=== PATIENT | male | born 1995 | race Native Hawaiian/Other Pacific Islander ===

== ENCOUNTER 2020-05-14 13:53 | Emergency (ER) | payer MEDICAID, SELFPAY | END 2020-05-14 16:40 | disposition left against medical advice (07) | PROVIDERS: Emergency Provider Emergency Medicine | DX: L23.9 Allergic contact dermatitis, unspecified cause (principal) ==

== ENCOUNTER 2020-08-19 10:28 | Outpatient (REF) | payer MEDICAID, SELFPAY | END 2020-08-19 10:29 | disposition home or self-care (01) | LOC: HO.LAB 10:28 | PROVIDERS: Visit Provider Internal Medicine | DX: Z20.822 Contact with and (suspected) exposure to COVID-19 (principal) | CPT/HCPCS: 36415; C9803; U0003 ==

== ENCOUNTER 2020-12-31 13:00 | Emergency (ER) | payer OTHER, MEDICAID, SELFPAY ==
--- NOTE | ~2020-12-31 | XR_ITS ---
EXAMINATION: XR RIBS, RIGHT CLINICAL INFORMATION: Right posterior rib pain after a fall COMPARISON: 02/11/2017 TECHNIQUE: 3 views of the right ribs were obtained. AP chest. FINDINGS: Lungs are clear. No consolidation, pneumothorax, or pleural effusion. The cardiomediastinal silhouette and pulmonary vasculature are normal. Osseous structures are unremarkable. Ribs are intact. No fractures are identified. XR/XR ribs RT min 3V w CXR1V IMPRESSION: Unremarkable examination.
[2020-12-31 13:03] VITALS: BP 135/78; PULSE 85; RESP 16; TEMP 36.8; O2SAT 100; BMI 19.3
--- NOTE | 2020-12-31 13:27 | ED_ITS ---
HPI - Back Pain/Injury General Chief Complaint: Back Pain/Injury Stated Complaint: FALL BACK PAIN Time Seen by Provider: 12/31/20 13:14 Source: patient Mode of arrival: ambulatory Limitations: no limitations History of Present Illness HPI Narrative: 25 y/o male presents to the ER with right middle and upper back pain for the last 2 days after he accidentally slipped and fell down metal stairs at work. He did not hit his head or lose consciousness. He was able to slowly get up after he fell and he drove right home. He spent yesterday in bed because his back was hurting. Pain is worse with movement, palpation and taking deep breaths. He has some abrasions to his upper back where he fell. He took Advil for pain but no improvement. MD elicited complaint: back injury and fall Pertinent past history: recent trauma Onset (ago): day(s) (2) Timing: constant Similar Symptoms Previously: No Quality: sharp and aching Location: right upper back Radiation: none Exacerbating factors: movement, deep breaths and coughing/sneezing Relieving factors: immobilization Context: fall Treatments prior to arrival: NSAIDS Work related injury: Yes Related Data Previous Rx's Medication Instructions Recorded lidocaine [Lidoderm] 1 patch TOPICAL DAILY #15 ea 12/31/20 naproxen 500 mg PO BID PRN #20 tab 12/31/20 Allergies Allergy/AdvReac Type Severity Reaction Status Date / Time No Known Allergies Allergy Unverified 04/15/20 16:59 [No Known Allergies*] Review of Systems Review of Systems: Constitutional: No Fever, No Chills ENT/Mouth: No sore throat, No Rhinorrhea, No Swallowing Difficulty s Cardiovascular: No Chest Pain, No SOB, No Orthopnea, No Edema Respiratory: No Cough, No Sputum, No Wheezing, No dyspnea Gastrointestinal: No Nausea, No Vomiting, No Diarrhea, No abdominal Pain Genitourinary: No Dysuria, No Urinary Frequency, No Hematuria Musculoskeletal: + joint pain, + Myalgias Skin: No Skin Lesions, No rash Neuro: No Weakness, No Numbness, No Dizziness, No Headache Heme/Lymph: No Bruising, No Lymphadenopathy Endocrine: No Polyuria, No Polydipsia [facility] Past Medical History Medical History (Updated 12/31/20 @ 15:02 by IVETTE Mcclendon) No known health problems Social History Social History Advance Directives: No Advance Directives Information Provided: Yes Physical Exam Vital Signs: Vital Signs: Last Vital Signs Temp 98.3 F 12/31/20 13:03 Pulse 85 12/31/20 13:03 Resp 16 12/31/20 13:03 BP 135/78 12/31/20 13:03 Pulse Ox 100 12/31/20 13:03 Body Mass Index 19.3 Appearance: Alert. Oriented X3. No acute distress. HEENT: normal inspection CVS: Normal heart rate and rhythm. Pulses normal. Respiratory: No respiratory distress. CTAB. Right upper back with superficial abrasions in a circular area below right scapula, tender. small ecchymosis Skin: Skin warm and dry. Normal skin color. Normal skin turgor. No rashes. Extremities: atraumatic, no edema, no ecchymosis Neuro: Oriented X 3. No motor deficit. No sensory deficit. Course Course Course Narrative: 25 y/o male presenting with upper right back pain/rib pain s/p fall onto metal stairs at work 2 days ago. Pain persists, worse with movement and deep breaths. Will get Rib XR to assess for fractures and PTX. Lung sounds are clear. Reevaluation(s) Reevaluation #1: CXR negative. Will treat for contusion with NSAID and lidoderm patches. Critical Care Time Critical Care Time Critical Care Time: No Discharge Plan Discharge Clinical Impression: Contusion of rib on right side Qualifiers: Encounter type: initial encounter Qualified Code(s): S20.211A - Contusion of right front wall of thorax, initial encounter Patient Disposition: Home, Self-Care Instructions: Rib Contusion (ED) Additional Instructions: Your x-ray today was normal. Rest. Use ice several times per day to the area. Limit bending, lifting or twisting. Take medications as prescribed to help with pain and discomfort. Follow up with your Primary Care Doctor next week. Prescriptions: New lidocaine [Lidoderm] 5 % adhesive patch,medicated 1 patch topical DAILY Qty: 15 RF: 0 naproxen 500 mg tablet 500 mg PO BID PRN (Reason: pain) Qty: 20 RF: 0 Stand Alone Forms: Work/School Release
[2020-12-31] MEDS: Lidocaine 4 % Patch ADH..PATCH 1 PATCH TRANSDERMA (15:28)
[2020-12-31] MEDS: Ketorolac Tromethamine 30 MG/ML VIAL IM (15:29)
== END 2020-12-31 15:57 | disposition home or self-care (01) ==
PROVIDERS: Emergency Provider Emergency Medicine Emergency Medical Services
DX: S20.211A Contusion of right front wall of thorax, initial encounter (principal); W10.8XXA Fall (on) (from) other stairs and steps, initial encounter; Y93.89 Activity, other specified; Y92.59 Other trade areas as the place of occurrence of the external cause; Y99.0 Civilian activity done for income or pay
CPT/HCPCS: 71101; 96372; 99283; 99284; J1885

== ENCOUNTER 2021-06-07 11:03 | Outpatient (REF) | payer MEDICAID, SELFPAY ==
[2021-06-07 12:08] LABS: Hemoglobin 15.4 g/dl (14.0-18.0); Mean Corpuscular HGB Conc 32.8 g/dl (31.0-36.0); Mean Corpuscular Hemoglobin 29.4 pg (27.0-33.0); Mean Corpuscular Volume 89.7 fL (80.0-98.0); Mean Platelet Volume 10.7 fL (9.4-12.4); Platelet Count 196 X10*3/uL (160-400); Red Blood Count 5.24 X10*6/uL (4.60-5.80); Red Cell Distribution Width 11.8 % (11.0-16.0); White Blood Count 6.1 X10*3/uL (4.8-10.8)
[2021-06-07 12:37] LABS: Alanine Aminotransferase 6 U/L (0-40); Albumin Level 4.4 g/dL (3.5-5.0); Alkaline Phosphatase 79 U/L (39-117); Anion Gap 14 (12-20); Aspartate Amino Transferase 19 U/L (5-37); Bilirubin Total 0.5 mg/dL (0.0-1.0); Blood Urea Nitrogen 9 mg/dL (9-16); Calcium 9.5 mg/dL (8.4-10.2); Carbon Dioxide 24 mmol/L (22-29); Chloride 106 mmol/L (96-108); Estimated Glomerular Filt Rate > 60; Glucose Random 92 mg/dL (60-115); Potassium 3.8 mmol/L (3.3-5.1); Sodium 140 mmol/L (135-145); Total Protein 7.4 g/dL (6.5-8.0)
[2021-06-07 12:57] LABS: Estimated Average Glucose 100 mg/dL; Hemoglobin A1c % 5.1 %
[2021-06-07 13:53] LABS: Appearance Urine CLEAR; Color Urine STRAW; Glucose Urine UA NEG (NEG); Leukocyte Esterase Urine NEG (NEG); Nitrite Urine NEG (NEG); PH 6.5 (5.0-8.0); Specific Gravity - Urine <= 1.005 (1.005-1.025); Urine Blood NEG (NEG); Urine Ketones NEG (NEG); Urine Protein NEG (NEG-TRACE)
[2021-06-07 14:11] LABS: RBC Urine 0 /HPF (0); Squamous Epithelial Cell Urine TRACE /LPF; WBC Urine 0-2 /HPF (0-4)
[2021-06-07 14:14] LABS: Creatinine Urine 54.55 mg/dL; Microalbumin Urine < 5.0 mg/L
== END 2021-06-07 11:04 | disposition home or self-care (01) ==
LOC: HO.LAB 11:03
PROVIDERS: Absent Provider Registered Nurse; PCP Registered Nurse; Visit Provider Internal Medicine Geriatric Medicine
DX: Q87.2 Congenital malformation syndromes predominantly involving limbs (principal)
CPT/HCPCS: 36415; 80053; 81001; 82043; 83036; 84443; 85027

== ENCOUNTER 2023-02-26 05:24 | Emergency (ER) | payer MEDICAID, SELFPAY ==
[2023-02-26 05:40] VITALS: BP 148/87; PULSE 78; RESP 18; TEMP 36.9; O2SAT 100; BMI 18.3
--- NOTE | 2023-02-26 08:06 | ED.MALEGU ---
HPI - Male Genitourinary General Chief complaint: Urogenital-Male Stated complaint: uro-gen male, prefers male doc/nurse Time Seen by Provider: 02/26/23 07:00 History of Present Illness HPI Narrative: Patient presents with penile lesions. Patient noted them over the past few days. They are not painful or pruritic. He has never noted before. Patient has a fiancee and is monogamous. However, he denies any sexual activity within the last year. He denies any penile discharge. He denies history of STD. Symptoms are [id number]. There is no clear relieving or exacerbating features. Patient is uncircumcised. Related Data Previous Rx's Medication Instructions Recorded lidocaine 5 % topical patch 1 patch topical DAILY #15 ea 12/31/20 (Lidoderm) naproxen 500 mg tablet 500 mg PO BID PRN pain #20 tabs 12/31/20 ketoconazole 2 % topical cream 1 appl topical BID #30 grams 02/26/23 Allergies Allergy/AdvReac Type Severity Reaction Status Date / Time No Known Allergies Allergy Verified 02/26/23 05:40 [No Known Allergies*] Review of Systems Review of Systems: CONSTITUTIONAL: Denies weight loss, fever and chills. HEENT: Denies changes in vision and hearing. RESPIRATORY: Denies SOB and cough. CV: Denies palpitations no CP. GI: Denies abdominal pain, nausea, vomiting and diarrhea. : Denies dysuria and urinary frequency. MSK: Denies myalgia and joint pain. SKIN: Denies rash and pruritus. NEUROLOGICAL: Denies headache and syncope. PSYCHIATRIC: Denies recent changes in mood. Denies anxiety and depression. All other ROS are negative unless in HPI PMFSH Past Medical History Medical History No known health problems Social History Social History Advance Directives: No Advance Directives Information Provided: No Physical Exam Vital Signs: Vital Signs: Last Vital Signs Temp 98.4 F 02/26/23 05:40 Pulse 78 02/26/23 05:40 Resp 18 02/26/23 05:40 BP 148/87 H 02/26/23 05:40 Pulse Ox 100 02/26/23 05:40 O2 Del Method Room Air 02/26/23 05:40 BMI result Body Mass Index 18.3 GEN: Well developed, no acute distress, alert, oriented HEENT: Normocephalic, atraumatic, normal external ears, nose appears normal Eyes: Normal to appearance Neck: Supple, no lymphadenopathy Respiratory: Talks in complete sentences, no respiratory distress Extremities: No clubbing cyanosis or edema Neurologic: No focal neurologic deficits, cranial nerves 2-12 intact, gait normal Skin: No rash : Small erythematous rash on glans penis, no evidence of discharge, no lymphadenopathy, no deformity, normal testicular exam. Medical Decision Making Medical Decision Making MDM Narrative: 27-year-old male presents with rash on penis is nonpainful nonpruritic. Differential diagnosis includes fungal infection, herpes, HPV, other nonspecific rash. Plan to start topical antifungal medications. Will check for STI. Will refer to Urology. Differential Diagnosis Differential Diagnoses: The differential diagnosis associated with the presentation includes (See above) Prescription Management I considered prescription management with: Antiviral and Antibiotic Discharge Plan Discharge Clinical Impression: Penile lesion Patient Disposition: Home, Self-Care Instructions: Genital Herpes Simplex (ED), Genital Warts (ED), Balanitis (ED) Prescriptions: New ketoconazole 2 % cream 1 appl topical BID Qty: 30 0RF No Action lidocaine [Lidoderm] 5 % adhesive patch,medicated 1 patch topical DAILY Qty: 15 0RF Rx Instructions: leave on most painful area for up to 12 hrs naproxen 500 mg tablet 500 mg PO BID PRN (Reason: pain) Qty: 20 0RF Referrals: Gilberto Carmen MD [Physician] - Stand Alone Forms: Work/School Release Interventions: ED Discharge Assessment Last Done: 02/26/23 07:43 Discharge Date/Time: 02/26/23 07:44
[2023-02-26 08:13] LABS: HIV AB/AG Nonreactive (Nonreactive); HIV Num 1 0.06 S/CO (0.00-0.99); Syphilis Screen Nonreactive (Nonreactive)
[2023-02-26 14:00] LABS: CT PCR NOT DETECTED (Not Detect.); NG PCR NOT DETECTED (Not Detect.)
[2023-02-27 23:23] LABS: Herpes Simplex Type 1 IgG <0.90 index; Herpes Simplex Type 2 IgG <0.90 index
== END 2023-02-26 07:44 | disposition home or self-care (01) ==
PROVIDERS: Emergency Provider Emergency Medicine
DX: N48.5 Ulcer of penis (principal); N50.89 Other specified disorders of the male genital organs
CPT/HCPCS: 0353U; 36415; 86695; 86696; 86780; 87389; 99282; 99283

== ENCOUNTER 2023-03-13 17:51 | Outpatient (REF) | payer MEDICAID, SELFPAY ==
[2023-03-14 15:00] LABS: CT PCR NOT DETECTED (Not Detect.); NG PCR NOT DETECTED (Not Detect.)
== END 2023-03-13 17:52 | disposition home or self-care (01) ==
LOC: HO.HHCLNP 17:51
PROVIDERS: Visit Provider Family Medicine
DX: N48.89 Other specified disorders of penis (principal)
CPT/HCPCS: 0353U; 36415; 87070; 87205; 87255

== ENCOUNTER 2023-03-25 13:31 | Emergency (ER) | payer MEDICAID, SELFPAY ==
--- NOTE | ~2023-03-25 | XR_ITS ---
EXAMINATION: XR HAND, LEFT CLINICAL INFORMATION: Question foreign body COMPARISON: None available. TECHNIQUE: PA, lateral, and oblique views of the left hand. FINDINGS: The bones and soft tissues are normal. No fracture. Alignment is anatomic. Joint spaces are maintained. No erosions or soft tissue calcifications. XR/XR hand LT 2V IMPRESSION: No fracture or dislocation. No radiodense foreign body identified.
[2023-03-25 13:32] VITALS: BP 151/81; PULSE 90; RESP 18; TEMP 37.3; O2SAT 98; BMI 18.1
--- NOTE | 2023-03-25 13:32 | ED_ITS ---
HPI - Wound/Laceration General Chief Complaint: Wound/Laceration Stated Complaint: Thumb lac Time Seen by Provider: 03/25/23 15:06 Source: patient Mode of arrival: ambulatory Limitations: no limitations History of Present Illness HPI narrative: Patient is a 27-year-old [id number] male presenting to the emergency department with laceration to left thumb. Patient states that he accidentally cut his thumb with a knife while fishing yesterday. He reports the area of the laceration is tender. Denies any numbness or tingling to his thumb. Patient unsure of last tetanus vaccine. Onset (ago): day(s) Extremity Location: left: hand Place: outdoors Context: accidental Associated symptoms: pain Related Data Previous Rx's Medication Instructions Recorded lidocaine 5 % topical patch 1 patch topical DAILY #15 ea 12/31/20 (Lidoderm) naproxen 500 mg tablet 500 mg PO BID PRN pain #20 tabs 12/31/20 ketoconazole 2 % topical cream 1 appl topical BID #30 grams 02/26/23 Allergies Allergy/AdvReac Type Severity Reaction Status Date / Time No Known Allergies Allergy Verified 02/26/23 05:40 [No Known Allergies*] Review of Systems 2 Review of Systems: As per HPI. Yes all other systems are reviewed and are negative Constitutional: Constitutional: Reports as per HPI [facility] Past Medical History Medical History No known health problems Social History Social History Advance Directives: No Advance Directives Information Provided: No Physical Exam Vital Signs: Vital Signs: Last Vital Signs Temp 99.1 F 03/25/23 13:32 Pulse 90 03/25/23 13:32 Resp 18 03/25/23 13:32 BP 151/81 H 03/25/23 13:32 Pulse Ox 98 03/25/23 13:32 O2 Del Method Room Air 03/25/23 13:32 BMI result Body Mass Index 18.1 Vital signs have been reviewed and appear to be correct. Blood pressure mildly elevated. Heart rate normal. Respiratory rate normal. Temperature normal. Oxygen saturation normal. Const: General: cooperative, healthy appearing and no acute distress Orientation/consciousness: oriented to person, oriented to place, oriented to time and patient oriented x3 Limitations: no limitations HEENT: Head: Yes normocephalic and Yes atraumatic Ears: external ears normal General nose exam: Normal external nose present Face and sinus: Yes face symmetric Mouth: oropharynx normal and moist mucous membranes Throat: Yes uvula midline Eyes: Pupils: Equal, round and reactive pupils present Neck: Neck: Yes normal visual inspection and Yes supple Resp: Effort & Inspection: normal respiratory effort and able to speak in complete sentences Auscultation: clear to auscultation bilaterally Cardio: Rate: regular rate Rhythm: regular rhythm Heart sounds: S1 normal heart sound present and S2 normal heart sound present GI: Palpation (GI): Soft to palpation and nontender Auscultation: normoactive bowel sounds : General: Yes no CVA tenderness Back/Spine/Pelvis: Back: no CVA tenderness Skin: General skin exam: elasticity normal and turgor normal Neuro: General: oriented to person, oriented to place, oriented to time, patient oriented x3, moves all extremities, no focal motor deficits and CN's II- XI intact bilaterally Cranial nerves: Yes Equal, round and reactive pupils present Cognition (Neuro): normal cognition Extrem: General: Yes full ROM, Yes normal exam except as noted, Yes no pedal edema and Yes no calf tenderness Left upper extremity: hand Details: normal capillary refill, neuromotor exam normal, neurosensory exam normal and laceration thumb ulnar aspect distal Details: L-shaped, with motor nerve function intact and with sensation intact Psych: Mental Status: mental status grossly normal Affect: normal affect Thought process: Normal thought process present Course Course Course Narrative: This is an RME: Additional HPI, ROS, PE not included below will be deferred to primary provider. Patient is a 27 year old male who who presents for evaluation of a laceration to the left thumb with a knife used for fishing. Bleeding controlled with pressure dressing. Decreased AROM to the digit. Date of last tetanus vaccination unknown. Medical Decision Making Medical Decision Making MDM Narrative: Patient is a 27-year-old [id number] male presenting to the emergency department with laceration to left thumb. On exam patient is awake, A+Ox3, VS WNL, afebrile, normal neurological exam without focal deficits, curved/L- shaped 1cm laceration to ulnar aspect of left distal thumb without active bleeding, full range of motion and strength to thumb, normal capillary refill. Given reported symptoms and physical exam findings, initial differential includes laceration, foreign body, fracture. X-ray notable for no foreign body or fracture. My interpretation is in agreement with the radiologist's interpretation. Review of EMR shows that patient received last tetanus vaccine on 02/24/2019 so this is up to date. Wound cleansed thoroughly, Steri strip applied, wound dressed. Patient advised keep dressing in place for the next 24 hours, then assess wound daily for signs of infection and to return if this occurs. Instructed to follow-up with PCP. Return precautions discussed at bedside. Patient verbalized understanding of and agreement with plan. Differential Diagnosis Differential Diagnoses: The differential diagnosis associated with the presentation includes As per MDM. Independent Interpretation I performed an independent interpretation of an: Plain X-Ray Interpretation: No fracture or foreign body left thumb Radiology Impression Discussion of test interpretation with radiology: I have reviewed the radiologist's reading. Radiologist Impression: XR/XR hand LT 2V IMPRESSION: No fracture or dislocation. ? No radiodense foreign body identified. External Record Review External record reviewed: Inpatient record, Office record and Outpatient record Discharge Plan Discharge Clinical Impression: Laceration of left thumb Patient Disposition: Home, Self-Care Instructions: Finger Laceration (ED) Additional Instructions: You have been evaluated in the emergency department today for a laceration to your thumb. Your laceration was repaired in the emergency department with steri-strips as your laceration occurred over 24 hours ago. Please keep the area surrounding the laceration clean and dry and keep dressing in place for the next 24 hours. After that please change the dressing and assess the wound daily. You should avoid submerging your left hand in water until the wound is fully healed, specifically you should avoid water of fan, lakes, or any other outdoor water. Keep the area out of direct sunlight for the next 6 months to help prevent scarring. If you develop fever, redness, swelling at the site of your laceration, or thick yellow drainage please come back to the ER for a wound check. Prescriptions: No Action lidocaine [Lidoderm] 5 % adhesive patch,medicated 1 patch topical DAILY Qty: 15 0RF Rx Instructions: leave on most painful area for up to 12 hrs naproxen 500 mg tablet 500 mg PO BID PRN (Reason: pain) Qty: 20 0RF ketoconazole 2 % cream 1 appl topical BID Qty: 30 0RF
== END 2023-03-25 16:02 | disposition home or self-care (01) ==
PROVIDERS: Emergency Provider Emergency Medicine
DX: S61.012A Laceration without foreign body of left thumb without damage to nail, initial encounter (principal); W26.0XXA Contact with knife, initial encounter; Y93.89 Activity, other specified; Y92.9 Unspecified place or not applicable; Y99.9 Unspecified external cause status
CPT/HCPCS: 73120; 99282; 99283

== ENCOUNTER 2023-05-16 17:25 | Outpatient (REF) | payer MEDICAID, SELFPAY ==
[2023-05-17 02:47] LABS: CT PCR NOT DETECTED (Not Detect.); NG PCR NOT DETECTED (Not Detect.)
== END 2023-05-16 17:26 | disposition home or self-care (01) ==
LOC: HO.HHCLNP 17:25
PROVIDERS: Visit Provider Emergency Medicine
DX: N50.89 Other specified disorders of the male genital organs (principal); K13.70 Unspecified lesions of oral mucosa
CPT/HCPCS: 0353U; 87255

== ENCOUNTER 2023-10-02 09:37 | Emergency (ER) | payer OTHER, SELFPAY ==
[2023-10-02 09:42] VITALS: BP 155/89; PULSE 96; RESP 18; TEMP 37; O2SAT 99; BMI 19.6
--- NOTE | 2023-10-02 09:53 | ED_ITS ---
HPI - Male Genitourinary General Chief complaint: Urogenital-Male Stated complaint: Diff Urinating Time Seen by Provider: 10/02/23 09:50 Source: patient and family Mode of arrival: ambulatory Limitations: no limitations History of Present Illness HPI Narrative: Patient is a 28-year-old male presenting to the emergency department with complaint of intermittent pain to his urethra for the past 6+ months. Also repo rts difficulty initiating urine stream, states he has to stand for at least one minute before he is able to initiate urine stream. States urination is easier when sitting. was seen here months ago and told he either had HSV or a fungal infection, was given antifungal medication. He states that he was later notified all his testing was negative. He followed up with his PCP as well, had additional STI testing and reports all of this was negative. States he has not been sexually active for over two years. Has been seen at urgent care as well, with reportedly all negative testing. He reports 2 episodes of clear/white discharge from his penis but this was several months ago, none recently. States at times he feels as though he is leaking urine, but when he checks he actually has not. Denies any testicular pain or swelling. occasionally has redness around his urethra. Complaint: other Onset (ago): month(s) Duration: intermittent Location: penis Quality: burning Related Data Previous Rx's Medication Instructions Recorded lidocaine 5 % topical patch 1 patch topical DAILY #15 ea 12/31/20 (Lidoderm) naproxen 500 mg tablet 500 mg PO BID PRN pain #20 tabs 12/31/20 ketoconazole 2 % topical cream 1 appl topical BID #30 grams 02/26/23 Allergies Allergy/AdvReac Type Severity Reaction Status Date / Time No Known Allergies Allergy Verified 02/26/23 05:40 [No Known Allergies*] Review of Systems Review of Systems: As per HPI. Yes all other systems are reviewed and are negative Constitutional: Constitutional: Reports as per HPI [facility] Past Medical History Medical History No known health problems Social History Social History Advance Directives: No Advance Directives Information Provided: Yes Physical Exam Vital Signs: Vital Signs: Last Vital Signs Temp 98.6 F 10/02/23 09:42 Pulse 96 10/02/23 09:42 Resp 18 10/02/23 09:42 BP 155/89 H 10/02/23 09:42 Pulse Ox 99 10/02/23 09:42 O2 Del Method Room Air 10/02/23 09:42 BMI result Body Mass Index 19.6 Vital signs have been reviewed and appear to be correct. Blood pressure elevated. Heart rate normal. Respiratory rate normal. Temperature normal. Oxygen saturation normal. Const: General: cooperative, healthy appearing and no acute distress Orientation/consciousness: oriented to person, oriented to place, oriented to time and patient oriented x3 Limitations: no limitations HEENT: Head: Yes normocephalic and Yes atraumatic Ears: external ears normal General nose exam: Normal external nose present Face and sinus: Yes face symmetric Mouth: oropharynx normal and moist mucous membranes Throat: Yes uvula midline Eyes: Pupils: Equal, round and reactive pupils present Neck: Neck: Yes normal visual inspection and Yes supple Resp: Effort & Inspection: normal respiratory effort and able to speak in complete sentences Auscultation: clear to auscultation bilaterally Cardio: Rate: regular rate Rhythm: regular rhythm Heart sounds: S1 normal heart sound present and S2 normal heart sound present GI: Palpation (GI): Soft to palpation and nontender Auscultation: normoactive bowel sounds : Other: chaperoned by MARYAN Hernandez tech General: Yes no CVA tenderness Male General Exam: Yes erythema (very slight erythema surrounding urethra) Penis: normal penis Scrotum: scrotum normal Testes: Testes normal Back/Spine/Pelvis: Back: no CVA tenderness Skin: General skin exam: elasticity normal and turgor normal Neuro: General: oriented to person, oriented to place, oriented to time, patient oriented x3, moves all extremities, no focal motor deficits and CN's II- XI intact bilaterally Cranial nerves: Yes Equal, round and reactive pupils present Cognition (Neuro): normal cognition Extrem: General: Yes full ROM, Yes no pedal edema and Yes no calf tenderness Psych: Mental Status: mental status grossly normal Affect: normal affect Thought process: Normal thought process present Medical Decision Making Medical Decision Making MDM Narrative: Patient is a 28-year-old male presenting to the emergency department with complaint of intermittent pain to his urethra for the past 6+ months. On exam patient is awake, A+Ox3, BP elevated, VS otherwise WNL, afebrile, normal neurological exam without focal deficits, physical exam findings as above. Given reported symptoms and physical exam findings, initial differential includes UTI, STI, urethritis. No evidence of infection on urinalysis. Syphilis testing negative. CT NG urine pending, advised patient he will be updated with any positive results. Given ongoing nature of symptoms, will refer patient to Urology. Return precautions discussed at bedside. Patient verbalized understanding of and agreement with plan. Differential Diagnosis Differential Diagnoses: The differential diagnosis associated with the presentat ion includes As per [facility]. Lab Data [facility] Lab Attestation statement: I reviewed the patient's lab results. As per [facility] Labs: Lab Results 10/02/23 10/02/23 Range/Units 10:46 10:49 Urine Color Yellow Urine Appearance Clear Urine pH 7.5 (5.0-9.0) Ur Specific [place] 1.010 (1.005-1.025) Urine Protein Negative (Neg-Trace) mg/dL Urine Glucose (UA) Negative (Negative) mg/dL Urine Ketones Negative (Negative) mg/dL Urine Blood Negative (Negative) Urine Nitrite Negative (Negative) Ur Leukocyte Esterase Negative (Negative) T.pallidum Ab (EIA) Nonreactive (Nonreactive) External Record Review External record reviewed: Inpatient record, Office record and Outpatient record Discharge Plan Discharge Clinical Impression: Pain in urethra Patient Disposition: Home, Self-Care Additional Instructions: You were evaluated in the emergency department today for pain to your urethra. Your urine does not appear to be infected. Testing for syphillis was negative. Your other tests are pending and you will be contacted with any positive results. You are being referred to Urology for further evaluation of your symptoms. Please call their office to schedule an appointment. Return to the emergency department if you develop severe pain, fever 100.4? F or greater, are unable to urinate for greater than 12 hours or any other concerning symptoms. Prescriptions: No Action lidocaine [Lidoderm] 5 % adhesive patch,medicated 1 patch topical DAILY Qty: 15 0RF Rx Instructions: leave on most painful area for up to 12 hrs naproxen 500 mg tablet 500 mg PO BID PRN (Reason: pain) Qty: 20 0RF ketoconazole 2 % cream 1 appl topical BID Qty: 30 0RF Referrals: [facility] [place] Urology Services [Provider Group]
[2023-10-02 10:57] LABS: Appearance Urine Clear; Color Urine Yellow; Glucose Urine UA Negative (Negative); Leukocyte Esterase Urine Negative (Negative); Nitrite Urine Negative (Negative); PH 7.5 (5.0-9.0); Urine Blood Negative (Negative); Urine Ketones Negative (Negative); Urine Protein Negative (Neg-Trace)
[2023-10-02 11:32] LABS: Syphilis Screen Nonreactive (Nonreactive)
[2023-10-02 12:26] LABS: CT PCR NOT DETECTED (Not Detect.); NG PCR NOT DETECTED (Not Detect.)
== END 2023-10-02 12:07 | disposition home or self-care (01) ==
PROVIDERS: Registered Nurse Emergency; Emergency Provider Student in an Organized Health Care Education/Training Program
DX: R33.9 Retention of urine, unspecified (principal); N23 Unspecified renal colic; Z20.2 Contact with and (suspected) exposure to infections with a predominantly sexual mode of transmission; Z79.899 Other long term (current) drug therapy
CPT/HCPCS: 0353U; 36415; 81003; 86780; 99282; 99283

== ENCOUNTER 2024-01-17 14:55 | Outpatient (AMB) | payer MEDICAID, SELFPAY ==
--- NOTE | 2024-01-17 15:05 | A.OFFVIS_ITS ---
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 He states he had White spots on of penis that turned to red started summer 2022 seen in the ED treated for balanitis treated with cream and the had urethral pain. States used sex toy and had dysuria. Seen again September 2023 symptoms are currently resolved. currently does not have a partner. Exam- Uncircumcised no testicular swelling or pain PFSH Medical History No known health problems Review of Systems Const All systems reviewed & are unremarkable except as noted in HPI and below Reports no additional complaints Eyes Reports no additional complaints ENT Reports no additional complaints Card Reports no additional complaints Resp Reports no additional complaints GI Reports no additional complaints Reports as per HPI Musc Reports no additional complaints Skin/Breast Reports system reviewed and no additional complaints, except as documented Neuro Reports no additional complaints Psych Reports no additional complaints Endo Reports no additional complaints Yung/Lymph Reports no additional complaints Aller/Immun Reports no additional complaints Physical Exam Const General: healthy appearing, no acute distress and well developed Orientation/consciousness: patient oriented x3 HEENT Head: Yes normocephalic and Yes atraumatic Eyes Conjunctivae: conjunctivae normal Neck Neck: Yes normal visual inspection Chest Chest palpation & inspection: normal inspection of the chest Resp Effort & Inspection: normal respiratory effort Cardio Rate: regular rate GI Inspection: Yes normal to inspection Palpation (GI): Soft to palpation Penis: normal penis and uncircumcised (Foreskin easily retractable, glans, normal) Scrotum: scrotum normal Skin General skin exam: no rashes or lesions noted Neuro General: patient oriented x3 Extrem General: No pedal edema Psych Appearance: grossly normal Affect: normal affect Results AMB Urinalysis, Automated UA Leukoctes 0 Yimi/uL Last Edit by SMILEY Singh on 01/17/24 15:31 UA Nitrite Negative Last Edit by SMILEY Singh on 01/17/24 15:31 UA Urobilinogen 0.2 mg/dL Last Edit by SMILEY Singh on 01/17/24 15:3 1 UA Protein 0 mg/dL Last Edit by SMILEY Singh on 01/17/24 15:31 UA pH 7.0 Last Edit by SMILEY Singh on 01/17/24 15:31 UA Blood 0 Talha/uL Last Edit by SMILEY Singh on 01/17/24 15:31 UA Specific [place] 1.015 Last Edit by SMILEY Singh on 01/17/24 15: 31 UA Ketone Negative Last Edit by SMILEY Singh on 01/17/24 15:31 UA Bilirubin 0 mg/dL Last Edit by SMILEY Singh on 01/17/24 15:31 UA Glucose 0 mg/dL Last Edit by SMILEY Singh on 01/17/24 15:31 Results Reviewed Results Reviewed: Laboratory Last Values Urine pH (Auto) 7.0 01/17/24 15:20 Specific [place] (Auto) 1.015 01/17/24 15:20 Urine Protein (Auto) 0 mg/dL 01/17/24 15:20 Glucose (UA)(Auto) 0 mg/dL 01/17/24 15:20 Urine Ketones (Auto) Negative 01/17/24 15:20 Urine Blood (Auto) 0 Talha/uL 01/17/24 15:20 Urine Nitrite (Auto) Negative 01/17/24 15:20 Urine Bilirubin (Auto) 0 mg/dL 01/17/24 15:20 Urine Urobilinogen (Auto) 0.2 mg/dL 01/17/24 15:20 Leukocyte Esterase (Auto) 0 Yimi/uL 01/17/24 15:20 Assessment & Plan Assessment & Plan (1) Dysuria: Code(s): R30.0 - Dysuria Category: Medical (2) Balanitis: Code(s): N48.1 - Balanitis Category: Medical Plan fu to review renal US results increase fluids, genital hygiene to reduce spegma Orders: Orders AMB Urinalysis Automated 01/17/24 Vale Skelton MD Z13.9 - Encounter for screening, unspecified US renal BI 01/23/24 Vale Skelton MD R30.0 - Dysuria Medications: Changed From naproxen 500 mg PO BID PRN 20 tabs 0RF pain To naproxen 500 mg PO BID IVETTE Mcclendon Discontinued lidocaine 5% leave on most painful area for up to 12 hrs Discontinued Reason: Patient Completed Course 1 patch topical DAILY 15 ea 0RF ketoconazole 2% Discontinued Reason: Patient Completed Course 1 appl topical BID 30 grams 0RF Patient Instructions: The patient had an opportunity to ask questions regarding treatment plan. The patient expressed understanding and agreement with the above treatment plan. The patient is aware they should contact our office by phone for worsening of their current condition or the appearance of new symptoms. Compliance is encouraged with any medications and followup testing that is ordered. It is a privilege to be allowed the opportunity to participate in the urologic care of your patient. If you have any questions or concerns regarding treatment for the above conditions please do not hesitate to contact me. The office telephone contact is [phone]. This note is constructed in part using voice recognition software. While every effort has been made to ensure accuracy automated access systems technician errors may have been included. Yours sincerely, Vale Skelton MD Coding Level of Care Code New Pt Level 3 (79295) Diagnoses Dysuria R30.0 Balanitis N48.1
== END 2024-01-17 16:10 | disposition home or self-care (01) ==
PROVIDERS: Visit Provider Urology
DX: R30.0 Dysuria (principal); N48.1 Balanitis
CPT/HCPCS: 99203

== ENCOUNTER → 2024-01-17 14:55 | Outpatient (BNVA) | payer MEDICAID, SELFPAY | PROVIDERS: Visit Provider Urology | DX: R30.0 Dysuria (principal); N28.1 Cyst of kidney, acquired | CPT/HCPCS: 81003; 99202 ==

== ENCOUNTER 2024-01-23 10:17 | Outpatient (REF) | payer MEDICAID, SELFPAY ==
--- NOTE | ~2024-01-23 | US_ITS ---
EXAMINATION: US RETROPERITONEAL LIMITED (RENAL ONLY) CLINICAL INFORMATION: Dysuria. COMPARISON: None available. TECHNIQUE: Real-time imaging of the kidneys. Limited visualization due to bowel gas. FINDINGS: RIGHT KIDNEY: 9.4 x 5.4 x 5.0 cm (SAG x AP x TRV). No hydronephrosis. No renal calculi. Renal cortical thickness is normal. Limited visualization. LEFT KIDNEY: 9.4 x 5.9 x 5.5 cm (SAG x AP x TRV). No hydronephrosis. No renal calculi. Renal cortical thickness is normal. Limited visualization. US/US renal BI IMPRESSION: No hydronephrosis. No renal calculi. Limited visualization.
== END 2024-01-23 10:18 | disposition home or self-care (01) ==
LOC: HO.US 10:17
PROVIDERS: Visit Provider Urology
DX: R30.0 Dysuria (principal)
CPT/HCPCS: 76775

== ENCOUNTER 2024-02-28 09:54 | Outpatient (REF) | payer MEDICAID, SELFPAY ==
[2024-02-28 11:11] LABS: Appearance Urine Clear; Color Urine Yellow; Glucose Urine UA Negative (Negative); Leukocyte Esterase Urine Negative (Negative); Nitrite Urine Negative (Negative); PH 8.5 (5.0-9.0); Urine Blood Negative (Negative); Urine Ketones Negative (Negative); Urine Protein Negative (Neg-Trace)
[2024-02-28 11:17] LABS: Bacteria Urine None Seen (None Seen); Hyaline Casts Urine 0-2 /LPF (0-2); RBC Urine 0-2 /HPF (0-2); Squamous Epithelial Cell Urine 0-2 /HPF (0-2); WBC Urine 0-5 /HPF (0-5)
[2024-02-28 11:27] LABS: Estimated Average Glucose 97 mg/dL
[2024-02-28 11:31] LABS: Anion Gap 10 (12-20); Blood Urea Nitrogen 9 mg/dL (9-16); Carbon Dioxide 27 mmol/L (22-29); Chloride 107 mmol/L (96-108); Estimated Glomerular Filt Rate > 60; Glucose Random 90 mg/dL (60-115); Sodium 140 mmol/L (135-145)
== END 2024-02-28 09:55 | disposition home or self-care (01) ==
LOC: HO.HHCL 09:54
PROVIDERS: Visit Provider Registered Nurse
DX: R80.9 Proteinuria, unspecified (principal); R35.89 Other polyuria
CPT/HCPCS: 36415; 80048; 81001; 83036

== ENCOUNTER 2024-04-02 16:03 | Outpatient (AMB) | payer MEDICAID, SELFPAY ==
--- NOTE | 2024-04-02 15:56 | A.OFFVIS_ITS ---
Intake Visit Reasons: 3m/U/S(US 01/22) Allergies No Known Allergies [No Known Allergies*] Allergy (Verified 01/17/24 15:06) HPI Comments Details: 04/02/24--Alfredo states that he still gets irritation around the glans. He is not able to always retract the foreskin to clean the area adequately. He is considering having a circumcision done but is not ready as yet. He wants to try another cream. Lotrisone sent to the pharmacy. The patient will call if he dec ides he wants to pursue getting a circumcision done. Dysuria improved. I have discussed renal ultrasound is within normal limits negative for kidney stones. 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 He states he had White spots on of penis that turned to red started summer 2022 seen in the ED treated for balanitis treated with cream and the had urethral pain. States used sex toy and had dysuria. Seen again September 2023 symptoms are currently resolved. States currently does not have a partner. Exam- Uncircumcised no testicular swelling or pain [facility] Medical History No known health problems Review of Systems Const All systems reviewed & are unremarkable except as noted in HPI and below Reports no additional complaints Eyes Reports no additional complaints ENT Reports no additional complaints Card Reports no additional complaints Resp Reports no additional complaints GI Reports no additional complaints Reports as per HPI Musc Reports no additional complaints Skin/Breast Reports system reviewed and no additional complaints, except as documented Neuro Reports no additional complaints Psych Reports no additional complaints Endo Reports no additional complaints Yung/Lymph Reports no additional complaints Aller/Immun Reports no additional complaints Telehealth Telehealth Telehealth Platform: Telephone Location of provider rendering services: practice address Location of patient: address on file Patient Identification confirmed using: Name, : Yes Telehealth method: voice only Patient verbally consented to treatment: Yes Patient verbally consented to billing insurance company: Yes Patient informed of any privacy concerns related to visit: Yes Minutes spent on Phone/Video with Pt.: 15 Results Reviewed Results Reviewed: Date of Service: 01/23/24 US RETROPERITONEAL LIMITED (RENAL ONLY) CLINICAL INFORMATION: Dysuria. COMPARISON: None available. TECHNIQUE: Real-time imaging of the kidneys. Limited visualization due to bowel gas. FINDINGS: RIGHT KIDNEY: 9.4 x 5.4 x 5.0 cm (SAG x AP x TRV). No hydronephrosis. No renal calculi. Renal cortical thickness is normal. Limited visualization. LEFT KIDNEY: 9.4 x 5.9 x 5.5 cm (SAG x AP x TRV). No hydronephrosis. No renal calculi. Renal cortical thickness is normal. Limited visualization. IMPRESSION: No hydronephrosis. No renal calculi. Limited visualization. Assessment & Plan Assessment & Plan (1) Balanitis: Code(s): N48.1 - Balanitis Category: Medical (2) Dysuria: Code(s): R30.0 - Dysuria Category: Medical Plan lotrisone cream prn. patient will call if wants to have circumcision Medications: New clotrimazole-betamethasone 1-0.05 % 1 appl topical BID 2 weeks 45 grams 2RF clotrimazole-betamethasone 1-0.05 % apply to penile glans twice daily for 14 days then prn 1 appl topical BID 2 weeks 45 grams 2RF Patient Instructions: The patient had an opportunity to ask questions regarding treatment plan. The patient expressed understanding and agreement with the above treatment plan. The patient is aware they should contact our office by phone for worsening of their current condition or the appearance of new symptoms. Compliance is encouraged with any medications and followup testing that is ordered. It is a privilege to be allowed the opportunity to participate in the urologic care of your patient. If you have any questions or concerns regarding treatment for the above conditions please do not hesitate to contact me. The office telephone contact is [phone]. This note is constructed in part using voice recognition software. While every effort has been made to ensure accuracy general repairer errors may have been included. Yours sincerely, Vale Skelton MD Coding Level of Care Code Tele Est Pt Level 4 (97025) Diagnoses Balanitis N48.1 Dysuria R30.0
== END 2024-04-02 16:04 | disposition home or self-care (01) ==
LOC: HO.HUSH 16:03
PROVIDERS: PCP Registered Nurse; Visit Provider Urology
DX: N48.1 Balanitis (principal); R30.0 Dysuria
CPT/HCPCS: 99214

== ENCOUNTER → 2024-04-02 16:03 | Outpatient (BNVA) | payer MEDICAID, SELFPAY | PROVIDERS: PCP Registered Nurse; Visit Provider Urology ==

== ENCOUNTER 2024-07-11 11:00 | Outpatient (AMB) | payer MEDICAID, SELFPAY ==
--- NOTE | 2024-07-11 11:11 | A.OFFVIS_ITS ---
Intake Visit Reasons: follow up/circumcision(dr edwards pt-wants male) Intake Note: Patient is present for F/U CIRCUMCISION Urology Medication:NONE Antibiotic Allergy:NONE Blood Thinner:NONE Water Filterer Required: No Allergies No Known Allergies [No Known Allergies*] Allergy (Verified 07/11/24 11:12) HPI Comments Details: Alfredo is a pleasant male. He is a patient of Dr. Alfredito tsai. He is seen for the following urologic conditions - balanitis - urethritis question prostatitis Discussion today focused on persistent discomfort towards tumor penis Had prior ECT evaluation Seventy seen consistent a question of prostatitis Did say he was better with a severe dose any ongoing Get 5 days of antifungal Balanitis Plan for circumcision [facility] Medical History No known health problems Review of Systems Const Denies chills and Denies fever(s) Card Reports no additional complaints and Denies syncope Resp Denies cough GI Denies abdominal pain and Denies heartburn Reports as per HPI and Denies change in libido Neuro Denies syncope Psych Denies change in libido Endo Denies change in libido Physical Exam Const General: cooperative, healthy appearing, comfortable and no acute distress Orientation/consciousness: patient oriented x3 HEENT Face and sinus: Yes normal facial exam Mouth: moist mucous membranes Neck Neck: Yes normal visual inspection, Yes full ROM and Yes trachea midline Chest Chest palpation & inspection: normal inspection of the chest Resp Effort & Inspection: normal respiratory effort, able to speak in complete sentences and no respiratory distress GI Inspection: Yes normal to inspection Back/Spine/Pelvis Cervical Spine: normal cervical lordosis Thoracic/Lumbar Spine: thoracic and lumbar spine normal to inspection Skin General skin exam: no rashes or lesions noted Neuro General: patient oriented x3, gait normal, tone normal and moves all extremities Extrem General: Yes normal to inspection and Yes capillary refill normal Assessment & Plan Assessment & Plan (1) Balanitis: Code(s): N48.1 - Balanitis Category: Medical (2) Dysuria: Code(s): R30.0 - Dysuria Category: Medical Plan Plan circumcision Medications: New fluconazole 150 mg PO DAILY 5 tabs 0RF 5 days N48.1 - Balanitis Patient Instructions: zImaging studies, laboratory and physical exam results were discussed and reviewed in detail. No major barriers to patient understanding were identified. An opportunity to ask questions regarding the treatment plan was provided. All questions were answered. The patient expressed understanding and agreement with the above treatment plan. The patient is aware they should contact our office by phone for worsening of their current condition or the appearance of new urologic symptoms. Compliance is encouraged with any medications and followup testing that is ordered. It is a privilege to participate in the urologic care of your patient. If you have any questions or concerns regarding treatment for the above conditions, or other urologic issues, please do not hesitate to contact me. The office telephone contact is [phone]. This note is constructed using voice recognition software. While every effort has been made to ensure accuracy telephone information clerk errors may have been included. Yours sincerely, Dr Gilberto Carmen MD, [facility] - Urology Providers of Expert, Compassionate Care for the Genitourinary System Coding Level of Care Code Est Pt Level 4 (27043) Diagnoses Balanitis N48.1 Dysuria R30.0
== END 2024-07-11 11:40 | disposition home or self-care (01) ==
PROVIDERS: PCP Registered Nurse; Visit Provider Urology
DX: N48.1 Balanitis (principal); R30.0 Dysuria
CPT/HCPCS: 99214

== ENCOUNTER → 2024-07-11 11:00 | Outpatient (BNVA) | payer MEDICAID, SELFPAY | PROVIDERS: PCP Registered Nurse; Visit Provider Urology | DX: N48.1 Balanitis (principal); R30.0 Dysuria | CPT/HCPCS: 99212 ==

== ENCOUNTER 2024-07-20 08:57 | Emergency (ER) | payer MEDICAID, SELFPAY ==
[2024-07-20 09:02] VITALS: BP 148/75; PULSE 100; RESP 19; TEMP 36.6; O2SAT 98; BMI 19.9
--- NOTE | 2024-07-20 09:10 | ED_ITS ---
HPI - General Adult General Chief complaint: General Medical Stated complaint: dryness Time Seen by Provider: 07/20/24 09:07 Source: patient Mode of arrival: ambulatory Limitations: no limitations History of Present Illness ED Provider: Elisabeth Marvin PA-C HPI narrative: Patient is a 28 year old assigned male at with no reported medical history presenting to the emergency department today with dry lips. Patient states that he has been dealing with dry lips for weeks and has not had any relief from chap stick. Patient denies any dizziness, lightheadedness, abdominal pain, nausea, vomiting, fever, chills, blurry vision, double vision, loss of vision, chest pain, difficulty breathing, shortness of breath, back pain, night sweats, pain with urination, increased urinary frequency, increased urinary urgency, blood in his urine or stool, syncope or a near syncopal episode, recent trauma or falls, bowel incontinence, bladder incontinence, or any other complaints at this time. Onset (ago): week(s) Relieving factors: none Exacerbating factors: none Associated symptoms: denies other symptoms Treatments prior to arrival: other (chapstick) Related Data Home Medications ?Medication ?Instructions ?Recorded ?Confirmed naproxen 500 mg tablet 500 mg PO BID pain 01/17/24 01/17/24 Previous Rx's ?Medication ?Instructions ?Recorded clotrimazole-betamethasone 1 1 appl topical BID 2 weeks #45 04/02/24 %-0.05 % topical cream grams fluconazole 150 mg tablet 150 mg PO DAILY 5 days #5 tabs 07/11/24 Allergies Allergy/AdvReac Type Severity Reaction Status Date / Time No Known Allergies Allergy Verified 07/20/24 09:04 [No Known Allergies*] Review of Systems Constitutional: Constitutional: Reports no additional constitutional complaints, Denies chills, Denies fever(s) and Denies night sweats Eyes: Eyes: Reports no additional eye complaints, Denies blurry vision, Denies change in vision, Denies diplopia, Denies eye discharge, Denies loss of vision and Denies eye pain ENT: Denies dizziness Comments: dry lips Cardiovascular: Cardiovascular: Reports no additional cardiovascular complaints, Denies chest pain, Denies lightheadedness, Denies Loss of Consciousness and Denies dyspnea Respiratory: Respiratory: Reports no additional respiratory complaints and Denies dyspnea Gastrointestinal: Gastrointestinal: Reports no additional gastrointestinal complaints, Denies abdominal pain, Denies melena, Denies hematochezia, Denies change in bowel habits and Denies change in stool character Genitourinary: Genitourinary: Reports no additional male genitourinary complaints, Denies hematuria, Denies oliguria, Denies difficulty urinating, Denies dysuria, Denies urinary frequency, Denies urinary hesitancy, Denies urinary incontinence and Denies urinary urgency Musculoskeletal: Musculoskeletal: Reports no additional musculoskeletal complaints, Denies numbness and Denies tingling Neurologic: Denies dizziness, Denies loss of vision, Denies numbness and Denies tingling Psychiatric: Psychiatric: Reports no additional psychiatric complaints Endocrine: Endocrine: Reports no additional endocrine complaints Hematologic/Lymphatic: Hematologic/Lymphatic: Reports no additional hematologic/lymphatic complaints Allergic/Immunologic: Allergic/Immunologic: Reports no additional allergic/immunologic complaints [facility] Past Medical History Attestation statement: The following information was validated with the patient. Source: old records reviewed and nursing notes reviewed Medical History No known health problems Social History Social History Advance Directives: No Advance Directives Information Provided: No Do you have a plan to hurt others: No Plan Physical Exam ED Vital Signs: Vital Signs - 24 hr 07/20/24 09:02 07/20/24 09:36 Temperature 98 F 98 F Pulse Rate 100 100 Respiratory Rate 19 19 Blood Pressure 148/75 H 148/75 H Pulse Oximetry 98 98 Oxygen Delivery Method Room Air Room Air BMI result Body Mass Index 19.9 Const General: cooperative, no acute distress, alert and awake Nutritional Appearance: well nourished Orientation/consciousness: patient oriented x3 Limitations: no limitations HENMT Head: Yes normal to inspection and Yes atraumatic Ears: hearing grossly normal bilaterally and external ears normal General nose exam: Normal external nose present, no nasal discharge noted and no epistaxis Face and sinus: Yes normal facial exam, No abrasion and No laceration Mouth: Normal oral and palatal mucosa present, no drooling, lip abnormal (mild dryness / cracking present to the upper and lower lips) and no muffled voice Eyes General: appearance normal, both eyes and all related structures Periorbital: periorbital findings normal Eyelids: Yes eyelids normal Conjunctivae: conjunctivae normal Pupils: Equal, round and reactive pupils present EOM: EOMs intact bilaterally Neck Neck: Yes normal visual inspection, Yes full ROM and Yes no lymphadenopathy Chest Chest palpation & inspection: normal inspection of the chest Resp Effort & Inspection: normal respiratory effort and able to speak in complete sentences GI Inspection: Yes normal to inspection Neuro General: patient oriented x3 and moves all extremities Cranial nerves: Yes Equal, round and reactive pupils present Cognition (Neuro): normal cognition Extrem General: Yes normal to inspection, Yes full ROM and Yes capillary refill normal Psych Appearance: grossly normal Mental Status: mental status grossly normal Affect: normal affect Attitude: cooperative Thought process: Normal thought process present Thought content: Normal thought content present Insight: Good insight present (Psych) Medical Decision Making Medical Decision Making MDM Narrative: Patient is a 28 year old assigned male at with no reported medical history presenting to the emergency department today with dry lips. Patient's physical exam showed minimal cracking / dryness of the upper and lower lips. I explained my physical exam findings to the patient. I answered all questions asked by the patient. I reviewed proper lip hydration techniques with the patient. I stressed the importance of the patient taking his medication as directed (either prescribed or as the over the counter packaging recommends). I stressed the importance of the patient following up with his primary care provider and his patient relations liaison, as scheduled. I stressed the importance of the patient returning to the emergency department immediately if his symptoms were to worsen or if he were to develop any dizziness, shortness of breath, difficulty breathing, chest pain, blurry vision, loss of vision, nausea, vomiting, abdominal pain, fever, chills, back pain, or any other complaints. Patient verbalized agreement and understanding with this treatment plan and discharge. Differential Diagnosis Differential Diagnoses: The differential diagnosis associated with the presentation includes Lip dryness Dry lips Admission/Observation Consideration of admission/observation: Escalation of care including admission/observation considered Patient would have been admitted to the hospital had his clinical presentation warranted hospital admission. Discharge Plan Discharge Clinical Impression: Dry lips Patient Disposition: Home, Self-Care Additional Instructions: Apply Vaseline to your lips before bed, nightly. Obtain a humidifier and use distilled water. Follow up with your primary care provider and your patient relations liaison. Return to the emergency department immediately if your symptoms worsen or if you develop any dizziness, shortness of breath, difficulty breathing, chest pain, blurry vision, loss of vision, nausea, vomiting, abdominal pain, fever, chills, back pain, or any other complaints. Prescriptions: No Action clotrimazole-betamethasone 1-0.05 % cream 1 appl topical BID 14 Days Qty: 45 2RF Rx Instructions: apply to penile glans twice daily for 14 days then prn naproxen 500 mg tablet 500 mg PO BID fluconazole 150 mg tablet 150 mg PO DAILY 5 Days Qty: 5 0RF Referrals: [facility] [Primary Care Provider] - Stand Alone Forms: Work/School Release Interventions: ED Discharge Assessment Last Done: 07/20/24 09:36 Discharge Date/Time: 07/20/24 09:37 Print Language: Faroese
[2024-07-20 09:36] VITALS: BP 148/75; PULSE 100; RESP 19; TEMP 36.6; O2SAT 98
== END 2024-07-20 09:37 | disposition home or self-care (01) ==
PROVIDERS: Emergency Provider Emergency Medicine Emergency Medical Services
DX: L85.3 Xerosis cutis (principal); Z79.899 Other long term (current) drug therapy
CPT/HCPCS: 99282

== ENCOUNTER 2024-10-03 17:33 | Outpatient (REF) | payer MEDICAID, SELFPAY ==
--- OUTSIDE RECORDS SUMMARY | 2024-10-03 17:37 | XMS_ITS | Clinical Summary ---
Author Organization [facility], Address [address] [place] [address] [place] [address] Phone Care Team Providers Care Architecture Professor Name Role Phone [facility] Primary Care Provider [phone] Medications cyproheptadine (PERIACTIN) 4 MG tablet take 1 tablet by oral route before bedtime 02/14/2023 Active Active Problems Problem Noted Date Diagnosed Date Proteinuria 01/25/2024 Social History Tobacco Use Types Packs/Day Years Used Date Smoking Tobacco: Never Assessed Sex and Gender Information Value Date Recorded Sex Assigned at Not on file Legal Sex Male 2:12 PM EST Gender Identity Not on file Sexual Orientation Not on file Plan of Treatment Health Maintenance Due Date Last Done Comments Pneumococcal Vaccine: Pediat rics (0 to 5 Years) and At-Risk Patients (6 to 64 Years) (1 of 2 - PCV) 2003 Influenza Vaccine (#1) 2024 3, 09/01/2020, 05/22/2016, Additional history exists Hepatitis B Vaccine Completed 04/01/1998, 01/27/1998, 1997 Insurance MEDICAID [place] Care Teams Architecture Professor Relationship Specialty Start Date End Date [facility] [address] [place] [address] PCP - General 08/29/23
--- OUTSIDE RECORDS SUMMARY | 2024-10-03 17:37 | XMS_ITS | Clinical Summary ---
Author Organization [employer] Address [address] [facility] [address] [place] [address] Care Team Providers Care Advertising Agency Manager Name Role Phone [facility] Primary Care Provider [phone] Allergies No known active allergies Medications cyproheptadine (Periactin) 4 MG tabletIndications :Nail-patella syndrome,Weight loss take 1 tablet by oral route before bedtime 30 tablet 3 3 Active mupirocin (Bactroban) 2 % ointment Apply to affected area once daily as needed. 22 g 3 Active Multiple Vitamin (multivitamin) tabletIndications :Patient underweight Take 1 tablet by oral route daily 90 tablet 3 3 Active Digestive Enzymes capsuleIndication s:Patient underweight Take 1 capsule by oral route three times daily with meals 180 capsule 3 3 Active albuterol (ProAir HFA) 108 (90 Base) MCG/ACT inhalerIndication s:Mild intermittent asthma without complication Inhale 2 puffs every 4 (four) hours. 18 g 2 3 Active triamcinolone (Kenalog) 0.1 % creamIndications: Vitiligo Apply topically 2 times daily. For 2 weeks 80 g 1 4 Active clotrimazole-beta methasone (Lotrisone) creamIndications: Rash Apply topically 2 times daily for 28 days. 45 g 5 11/01/19 25 Active Active Problems Problem Noted Date Diagnosed Date Dysuria 10/03/2024 Assessment & Plan (10/03/2024 10:44 AM EST): UA and culture ordered today, patient will be contacted with results I advised to continue to follow-up with urology Screening examination for STI 10/03/2024 Assessment & Plan (10/03/2024 10:45 AM EST): Full STI panel ordered patient will be contacted with results Rash 10/03/2024 Assessment & Plan (10/03/2024 10:45 AM EST): Ankle area advised and clean I will prescribe patient clotrimazole with betamethasone to apply twice a day no more than 2 weeks Vitamin D deficiency 03/18/2024 Proteinuria 01/25/2024 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 States trait affects multiply family members in paternal lineage. 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 ?? Cyproheptatdine 4mg at bedtime to promote weight gain Assessment & Plan (12/25/2022 11:40 AM EDT): ?? Increased risk of renal disease. Will check kidney function today ?? Difficulty with weight gain. Patient has lost 1lb since last visit. Will refill cyproheptadine however given new onset knee pain will also check esr/crp Mild intermittent asthma 06/04/2021 Overview (12/25/2022): ?? Albuterol PRN Encounters Date Type Department Care Team Description 10/03/2024 10:00 AM EST Office Visit [facility] [address] [place] [address] Shakila Cornelius MD Dysuria (Primary Dx); Screening examination for STI; Rash 08/26/2024 Telephone [facility] [address] [place] [address] [place], [place], [facility] Durable Medical Equipment from Last 3 Months Immunizations Name Administration Dates Next Due DTaP 09/27/2001, 9,04/01/1998,01/27,1997 HPV, Quadrivalent 04/29/2014,06/25/2013,04/07/20 13 Hep A, ped/adol, 2 dose 04/29/2014,03/15/2011 Hep B, Adolescent or Pediatric 04/01/1998,1997,1997 Hib (HbOC) 12/28/1998, 8,01/27/1998,11/23 IPV 09/27/2001, 8,01/27/1998,11/23 Influenza injectable quadriv alent preservative free 07/13/2023,09/01/2020,05/22/2016,04/29 Influenza, IIV3, injectable 06/05/2011 Influenza, Split (incl. ge fied surface antigen) 04/07/2013,03/25/2012 Influenza, seasonal, injecta ble, preservative free 06/18/2024 MMR 09/27/2001,09/29/1998 Meningococcal MCV4P ACYW-135 05/22/2016,03/15/20 11 Pfizer Covid-19 Vaccine 12+ 07/13/2023 Tdap 02/24/2019,02/09/2005 Varicella 11/10/2008,09/29/1998 Family History Medical History Relation Name Comments Nail-Patella Syndrome Father Diabetes Mother Hypertension Mother Nail-Patella Syndrome Sister Renal disorder Sister Relation Name Status Comments Father Mother Sister Social History Tobacco Use Types Packs/Day Years Used Date Smoking Tobacco: Every Day Cigarettes Passive Smoke Exposure: Current Smokeless Tobacco: Never Tobacco Cessation:Ready to Q uit: Not Asked; Counseling Given: Not Answered Alcohol Use Standard Drinks/Week Comments Never 0 (1 standard drink = 0.6 oz pur e alcohol) Depression Answer Date Recorded Patient Health Questionnaire-9 Score 0 03/19/2024 Patient Health Questionnaire-9 Score 0 03/19/2024 Last PHQ-9: Questionnaire Data Not on file 0 03/19/2024 Housing Stability Answer Date Recorded What is your housing situation today? I have pineda jones 05/16/[address] you li ve. Do you have problems with any of the following? None of the above 05/16/2023 Food Insecurity Answer Date Recorded Within the past 12 months, y ou worried that your food would run out before you got money to buy more: Never True 05/16/2023 Within the past 12 months,th e food you bought just didn't last and you didn't have enough money to get more: Never True Transportation Answer Date Recorded In the past 12 months, has l ack of transportation kept you from medical appts, meetings, work or from getting things needed for daily living? No 05/16/2023 Utilities Answer Date Recorded In the past 12 months, has t he [employer], gas, oil or water company threatened to shut off services in your home? No 05/16/2023 Depression Answer Date Recorded Patient Health Questionnaire-2 Score 0 03/19/2024 Sex and Gender Information Value Date Recorded Sex Assigned at Male 05/29/2022 10:16 AM EDT Legal Sex Male 10:16 AM EDT Gender Identity Male 05/29/2022 10:16 AM EDT Sexual Orientation Straight 05/29/2022 10 :16 AM EDT Last Filed Vital Signs Vital Sign Reading Time Taken Comments Blood Pressure 120/80 10/03/2024 9:46 AM EST Pulse 62 10/03/2024 9:46 AM EST Temperature 36.9 ??C (98.5 ??F) 10/03/2024 9:46 AM ES T Respiratory Rate 18 10/03/2024 9:46 AM EST Oxygen Saturation 98% 05/06/2024 3:51 PM EDT Inhaled Oxygen Concentration - - Weight 53.8 kg (118 lb 9.8 oz) 10/03/2024 9:46 A M EST Height 160 cm (5' 3 ) 10/03/2024 9:46 AM EST Body Mass Index 21.01 10/03/2024 9:46 AM EST Plan of Treatment Health Maintenance Due Date Last Done Comments HIV Screening 1997 Lipid Panel 1997 Alcohol/Substance Use Screening 2009 Family Planning (PISQ) 2012 Hepatitis C Screening 2015 Pneumococcal Vaccine: Pediatrics (0 to 5 Years) and At-Risk Patients (6 to 49) Years) (1 of 2 - PCV) 2016 SDOH Screening 03/21/2024 03/21/2023 COVID-19 Vaccine ( season) 2024 07/13/2023, 01/22/2022, 12/22/2020, Additional history exists Depression Screening 03/19/2025 03/19/2024, 03/19/20 24 Tobacco Screening 10/03/2025 10/03/2024 DTaP/Tdap/Td Vaccines (7 - Td or Tdap) 02/24/2029 02/24/2019, 02/09/2005, 09/27/2001, Additional history exists Zoster Vaccines (1 of 2) 2047 RSV Patients and Patients Aged 60 years or older (1 - 1-dose 75+ series) 2072 Hepatitis B Vaccines Completed 04/01/1998, 01/27/1998, 1997 HIB Vaccines Completed 12/28/1998, 09/1997, 01/27/1998, Additional history exists IPV Vaccines Completed 09/27/2001, 09/1997, 01/27/1998, Additional history exists HPV Vaccines Completed 04/29/2014, 05/31, 04/07/2013 Hepatitis A Vaccines Completed 04/29/2014, 03/15/20 11 Meningococcal Vaccine Completed 05/22/2016, 011 Influenza Vaccine Completed 06/18/2024, , 09/01/2020, Additional history exists RSV under 20 months Aged Out No longe r eligible based on patient's age to complete this topic Rotavirus Vaccines Aged Out No longer eligible based on patient's age to complete this topic Insurance [facility] C3 HSN FULL Care Teams Advertising Agency Manager Relationship Specialty Start Date End Date Suzi Mendiola FNP [address] [place] [id number] PCP - General Family Medicine 04/27/21
--- OUTSIDE RECORDS SUMMARY | 2024-10-03 17:37 | XMS_ITS | Encounter Summary ---
Author Organization [employer] Address [address] [facility] [address] 7[address] [place] [address] Care Team Providers Care Nonprofit Director Name Role Phone [facility] Primary Care Provider [phone] Encounter Details Date Type Department Care Team ([facility] st Contact Info) Description 10/03/2024 10:00 AM EST Office Visit [facility] [address] [place], [place] [phone] Shakila Cornelius MD [address] [place] [address] Dysuria (Primary Dx); Screening examination for STI; Rash Social History Tobacco Use Types Packs/Day Years Used Date Smoking Tobacco: Every Day Cigarettes Passive Smoke Exposure: Current Smokeless Tobacco: Never Alcohol Use Standard Drinks/Week Comments Never 0 [...] the past 12 months, has t he electric, gas, oil or water company threatened to shut off services in your home? No 05/16/2023 Depression Answer Date Recorded Patient Health Questionnaire-2 Score 0 03/19/2024 Sex and Gender Information Value Date Recorded Sex Assigned at Male 05/29/2022 10:16 AM EDT Legal Sex Male 10:16 AM EDT Gender Identity Male 05/29/2022 10:16 AM EDT Sexual Orientation Straight 05/29/2022 10 :16 AM EDT documented as of this encounter Last Filed Vital Signs Vital Sign Reading Time Taken Comments Blood Pressure 120/80 10/03/2024 9:46 AM EST Pulse 62 10/03/2024 9:46 AM EST Temperature 36.9 ??C (98.5 ??F) 10/03/2024 9:46 AM ES T Respiratory Rate 18 10/03/2024 9:46 AM EST Oxygen Saturation - - Inhaled Oxygen Concentration - - Weight 53.8 kg (118 lb 9.8 oz) 10/03/2024 9:46 A M EST Height 160 cm (5' 3 ) 10/03/2024 9:46 AM EST Body Mass Index 21.01 10/03/2024 9:46 AM EST documented in this encounter Progress Notes * Shakila Sierra MD - 10/03/2024 10:00 AM EST SUBJECTIVE: Alfredo Davis is a 29 y.o. year old male who presents for sick visit . Acute Concerns: Patient comes in today with a history of dysuria. For the past year, reports he has been followed by urologist and has a schedule circumcision for next month. Patient states he has not rash and some bumps in his inguinal and pubic area and also pain and dysuria on the top of the penis reports he isnever able to finish urination and after urination and ejaculation he has swelling in his urethra ar ea Patient also complains of dry lips and bumps around his lips patient seems to be very anxious abouthis symptoms and is afraid he has HIV or herpes but states the last time he was sexually active was3 years ago. He insist to do full STD panel today Social History Social History Narrative Tobacco Use:Former ETOH: None Marijuana Use: None Other substance use: None Current living environment: Lives with group home AFAB partner Children: 0 Employment/education: Works at [email or web address] Sexually active: yes Partners are: AFAB Patient Active Problem List Diagnosis Nail-patella syndrome Mild intermittent asthma Proteinuria Vitamin D deficiency Dysuria Screening examination for STI Rash Family History Problem Relation Name Age of Onset Hypertension Mother Diabetes Mother Other (Nail-Patella Syndrome) Father Other (Nail-Patella Syndrome) Sister Other (Renal disorder) Sister Review of Systems Constitutional: Negative. HENT: Negative. Respiratory: Negative. Cardiovascular: Negative. Genitourinary: Positive for difficulty urinating, dysuria, frequency, penile pain, penile swelling and urgency. Negative for decreased urine volume, enuresis, flank pain, genital sores, hematuria, penile discharge, scrotal swelling and testicular pain. OBJECTIVE: Vitals: 10/03/24 0946 BP: 120/80 BP Location: Right arm Patient Position: Sitting BP Cuff Size: Adult Pulse: 62 Resp: 18 Temp: 98.5 ??F (36.9 ??C) TempSrc: Oral Weight: 118 lb 9.8 oz (53.8 kg) Height: 5' 3 (1.6 m) Physical Exam Constitutional: Appearance: Normal appearance. Cardiovascular: Rate and Rhythm: Normal rate and regular rhythm. Pulmonary: Effort: Pulmonary effort is normal. Breath sounds: Normal breath sounds. Abdominal: General: Abdomen is flat. Palpations: Abdomen is soft. Genitourinary: Pubic Area: Rash present. Penis: No phimosis, paraphimosis, hypospadias, erythema, tenderness, discharge, swelling or lesions. Testes: Normal. Right: Mass, tenderness, swelling or varicocele not present. Right testis is descended. Left: Mass, tenderness, swelling or varicocele not present. Left testis is descended. Neurological: Mental Status: He is alert. Follow Up: No follow-ups on file. Current Outpatient Medications on File Prior to Visit Medication Sig Dispense Refill albuterol (ProAir HFA) 108 (90 Base) MCG/ACT inhaler Inhale 2 puffs every 4 (four) hours. 18 g 2 cyproheptadine (Periactin) 4 MG tablet take 1 tablet by oral route before bedtime 30 tablet 3 Digestive Enzymes capsule Take 1 capsule by oral route three times daily with meals 180 capsule 3 Multiple Vitamin (multivitamin) tablet Take 1 tablet by oral route daily 90 tablet 3 mupirocin (Bactroban) 2 % ointment Apply to affected area once daily as needed. 22 g 0 triamcinolone (Kenalog) 0.1 % cream Apply topically 2 times daily. For 2 weeks 80 g 1 No current facility-administered medications on file prior to visit. Problem List Items Addressed This Visit Dysuria - Primary UA and culture ordered today, patient will be contacted with results I advised to continue to follow-up with urology Relevant Orders Culture, Urine, Routine Screening examination for STI Full STI panel ordered patient will be contacted with results Relevant Orders HIV-1/2 Antigen and Antibodies, Fourth Generation, with Reflexes Hepatitis A,B,C Profile RPR (Monitor) with Reflex to Titer Chlamydia/N. Gonorrhoeae RNA, TMA, Urogenitial Rash Ankle area advised and clean I will prescribe patient clotrimazole with betamethasone to apply twice a day no more than 2 weeks Relevant Medications clotrimazole-betamethasone (Lotrisone) cream documented in this encounter Miscellaneous Notes * Assessment & Plan Note - Shakila Sierra MD - 10/03/2024 10:45 AM EST Associated Problem(s): Screening examination for STI Full STI panel ordered patient will be contacted with results * Assessment & Plan Note - Shakila Sierra MD - 10/03/2024 10:45 AM EST Associated Problem(s): Rash Ankle area advised and clean I will prescribe patient clotrimazole with betamethasone to apply twice a day no more than 2 weeks * Assessment & Plan Note - Shakila Sierra MD - 10/03/2024 10:44 AM EST Associated Problem(s): Dysuria UA and culture ordered today, patient will be contacted with results I advised to continue to follow-up with urology documented in this encounter Plan of Treatment Scheduled Orders Name Type Priority Associated Diagnoses Orde r Schedule HIV-1/2 Antigen and Antibodies, Fourth Generation, with Reflexes Lab Routine Screening examination for STI Expected: 10/03/2024 (Approximate), Expires: 10/03/2025 Hepatitis A,B,C Profile Lab Routine Screening examination for STI Expected: 10/03/2024, Expires: 10/03/2025 RPR (Monitor) with Reflex to??Titer Lab Routine Screening examination for STI Expected: 10/03/2024, Expires: 10/03/2025 Chlamydia/N. Gonorrhoeae RNA, TMA, Urogenitial Microbiology Routine Screening examination for STI Ordered: 10/03/2024 Culture, Urine, Routine Microbiology Routine Dysuria Expected: 10/03/2024 (Approximate), Expires: 10/03/2025 documented as of this encounter Visit Diagnoses Diagnosis Dysuria- Primary Screening examination for STI Rash Rash and other nonspecific skin eruption documented in this encounter Additional Health Concerns Assessment Noted Time PHQ-9 Depression Total Score: 0 03/19/20 24 9:37 AM EDT documented as of this encounter Care Teams Nonprofit Director Relationship Specialty Start Date End Date Suzi Mendiola FNP [address] [place] [id number] PCP - General Family Medicine 04/27/21 documented as of this encounter
--- OUTSIDE RECORDS SUMMARY | 2024-10-03 17:37 | XMS_ITS | Encounter Summary ---
Author Organization [employer] Address [address] [facility] 7[address] [place] [address] Care Team Providers Care Phlebotomy Services Representative Name Role Phone [facility] Primary Care Provider [phone] Reason for Visit * Reason Onset Date Comments Results 03/15/2023 Encounter Details Date Type Department Care Team ([facility] st Contact Info) Description 03/15/2023 Telephone [facility] [address] [place], [place] [phone] [facility] [address] [place] [address] Results Social History Tobacco Use Types Packs/Day Years Used Date Smoking Tobacco: Every Day Cigarettes Alcohol Use Standard Drinks/Week Comments Never 0 (1 standard drink = 0.6 oz pur e alcohol) Sex and Gender Information Value Date Recorded Sex Assigned at Male 05/29/2022 10:16 AM EDT Legal Sex Male 10:16 AM EDT Gender Identity Male 05/29/2022 10:16 AM EDT Sexual Orientation Straight 05/29/2022 10 :16 AM EDT documented as of this encounter Miscellaneous Notes * Telephone Encounter - Janet Ward RN - 03/15/2023 2:32 PM EDT T/C to pt. For below message, pt. Verbally agreed and understood. Please advise patient that GC/chlamydia PCR test is negative. HSV and GC cultures are still pending. * Telephone Encounter - Janet Ward RN - 03/15/2023 1:10 PM EDT Pt. Is looking for lab results. Please review and advice. * Telephone Encounter - Latonia Raine - 03/15/2023 10:41 AM EDT Tc from pt requesting lab results documented in this encounter Plan of Treatment Not on file documented as of this encounter Visit Diagnoses Not on filedocumented in this encounter Additional Health Concerns Assessment Noted Time PHQ-9 Depression Total Score: 0 12/16/19 23 3:35 PM EDT documented as of this encounter Care Teams Phlebotomy Services Representative Relationship Specialty Start Date End Date Suzi Mendiola FNP [address] [place] [phone] PCP - General Family Medicine 04/27/21 documented as of this encounter
--- OUTSIDE RECORDS SUMMARY | 2024-10-03 17:37 | XMS_ITS | Encounter Summary ---
Author Organization [employer] Address [address] [facility] 7t [place] [address] Care Team Providers Care Fruit Trimmer Name Role Phone [facility] Primary Care Provider Reason for Visit * Reason Onset Date Comments Durable Medical Equipment 08/26/2024 Encounter Details Date Type Department Care Team ([facility] st Contact Info) Description 08/26/2024 Telephone [facility] [address] [place], [place] [phone] [facility] [address] [place] [address] Durable Medical Equipment Social History Tobacco Use Types Packs/Day Years [...] encounter Miscellaneous Notes * Telephone Encounter - Loretta Denton RN - 09/23/2024 2:48 PM EST TC to [facility] to inquire about why pt's ensure was not delivered. [facility] states that pt is due for09/24/24. Yaritza to place order and will be delivered on 09/25/24. TC to pt to inform him that ensure will delivered on this date. No answer, LVM to return call to office and ask for red team nurses. * Telephone Encounter - Larry Titus - 08/26/2024 9:51 AM EST Tc from pt stated he received a call from [employer] and stated they are unable to deliver ensure milk pt is unclear what's the reason. documented in this encounter Plan of Treatment Not on file documented as of this encounter Visit Diagnoses Not on filedocumented in this encounter Additional Health Concerns Assessment Noted Time PHQ-9 Depression Total Score: 0 03/19/20 24 9:37 AM EDT documented as of this encounter Care Teams Fruit Trimmer Relationship Specialty Start Date End Date Suzi Mendiola FNP [address] [place] [phone] PCP - General Family Medicine 04/27/21 documented as of this encounter
[2024-10-04 09:40] LABS: CT PCR NOT DETECTED (Not Detect.); NG PCR NOT DETECTED (Not Detect.)
== END 2024-10-03 17:34 | disposition home or self-care (01) ==
LOC: HO.HHCLNP 17:33
PROVIDERS: Visit Provider Internal Medicine
DX: Z11.3 Encounter for screening for infections with a predominantly sexual mode of transmission (principal); R30.0 Dysuria
CPT/HCPCS: 87086; 87491; 87591

== ENCOUNTER 2024-10-07 11:29 | Outpatient (REF) | payer MEDICAID, SELFPAY ==
--- OUTSIDE RECORDS SUMMARY | 2024-10-07 14:17 | XMS_ITS | Encounter Summary ---
Author Organization [employer] Address [address] [facility] [address] [place] [address] Care Team Providers Care Front Desk Specialist Name Role Phone [facility] Primary Care Provider [phone] Encounter Details Date Type Department Care Team ([facility] st Contact Info) Description 10/03/2024 10:00 AM EST Office Visit [facility] [address] [place], [place] [phone] Shakila Cornelius MD [address] [place] [address] Dysuria (Primary Dx); Screening examination for STI; [...] AFAB partner Children: 0 Employment/education: Works at [employer] Sexually active: yes Partners are: AFAB Patient [...] documented in this encounter Plan of Treatment Upcoming Encounters Date Type Department Care Team (Late st Contact Info) Description 10/27/2024 10:30 AM EDT Office Visit [facility] [address] [place], [place] [phone] Ararat, Suzi, ELECTROPHYSIOLOGY TECH [address] [place], [place] [phone] Scheduled Orders Name Type Priority Associated Diagnoses Orde r Schedule HIV-1/2 Antigen and Antibodies, Fourth Generation, with Reflexes Lab Routine Screening examination for STI Expected: 10/03/2024 (Approximate), Expires: 10/03/2025 Hepatitis A,B,C Profile Lab Routine Screening examination for STI Expected: 10/03/2024, Expires: 10/03/2025 RPR (Monitor) with Reflex to??Titer Lab Routine Screening examination for STI Expected: 10/03/2024, Expires: 10/03/2025 documented as of this encounter Procedures Procedure Name Priority Date/Time Associated Diagnosis Comments CHLAMYDIA/N. GONORRHOEAE RNA, TMA, UROGENITAL Routine 10/03/2024 10:38 AM EST Screening examination for STI CULTURE, URINE, ROUTINE Routine 10/03/2024 10:38 AM EST Dysuria documented in this encounter Results * Culture, Urine, Routine (10/03/2024 10:38 AM EST) Urine Urine specimen obtained by clean catch procedure / Unknown 10/03/2024 10:38 AM EST 10/03/2024 5:34 PM EST Comment:[facility] - 10/05/2024 10:45 AM EDT Urine Culture No growth. Specimen Source: Urine clean catch us Shakila Sierra MD LAB MICROBIOLOGY - [facility] ORDERABLES Final Result [facility] [address] [place] [address] [phone] * Chlamydia/N. Gonorrhoeae RNA, TMA, Urogenitial (10/03/2024 10:38 AM EST) CT PCR NOT DETECTED Not Detect. [facility] Comment:A not detected test result does not exclude the possibilityof infection because test results can be affected byimproper specimen collection, concurrent antibiotic therapy,or the number of organisms in the specimen which may bebelow the sensitivity of the test. As with many diagnostictests, results from the Xpert CT/NG assay should beinterpreted in conjunction with other laboratory andclinical data available to the clinician.Xpert CT/NG performance has not been evaluated in patientsless than 14 years of age. The assay should not be used forthe evaluationof suspected sexual abuse or for other medico-legalindications. Additional testing is recommended in anycircumstance when false positive or false negative resultscould lead to adverse medical, social or psychologicalconsequences. NG PCR NOT DETECTED Not Detect. [facility] Comment:A not detected test result does not exclude the possibilityof infection because test results can be affected byimproper specimen collection, concurrent antibiotic therapy,or the number of organisms in the specimen which may bebelow the sensitivity of the test. As with many diagnostictests, results from the Xpert CT/NG assay should beinterpreted in conjunction with other laboratory andclinical data available to the clinician.Xpert CT/NG performance has not been evaluated in patientsless than 14 years of age. The assay should not be used forthe evaluationof suspected sexual abuse or for other medico-legalindications. Additional testing is recommended in anycircumstance when false positive or false negative resultscould lead to adverse medical, social or psychologicalconsequences. Urine (Urine, Random) 10/03/2024 10:38 AM EST 10/03/2024 5:34 PM EST Narrative [facility] - 10/04/2024 9:40 AM EST Urine us Shakila Sierra MD LAB MICROBIOLOGY - GE NERAL ORDERABLES Final Result [facility] [address] [place] [address] [phone] documented in this encounter Visit Diagnoses Diagnosis Dysuria- Primary Screening examination for STI Rash Rash and other nonspecific skin eruption documented in this encounter Additional Health Concerns Assessment Noted Time PHQ-9 Depression Total Score: 0 03/19/20 24 9:37 AM EDT documented as of this encounter Care Teams Front Desk Specialist Relationship Specialty Start Date End Date Suzi Mendiola FNP [address] [place] [phone] PCP - General Family Medicine 04/27/21 documented as of this encounter
--- OUTSIDE RECORDS SUMMARY | 2024-10-07 14:17 | XMS_ITS | Encounter Summary ---
Author Organization [employer] Address [address] [facility] 7[address] [place] [address] Care Team Providers Care Fax Machine Repairer Name Role Phone [facility] Primary Care Provider [phone] Reason for Visit * Reason Onset Date Comments Durable Medical Equipment 08/26/2024 Encounter Details Date Type Department Care Team ([facility] st Contact Info) Description 08/26/2024 Telephone [facility] [address] [place], [place] [phone] [facility] [address] [place] [address] Durable Medical Equipment Social History Tobacco Use [...] Description 10/27/2024 10:30 AM EDT Office Visit [facility] [address] [place], [place] [phone] [facility], [facility] [address] [place] [address] documented as of this encounter Visit Diagnoses Not on filedocumented in this encounter Additional Health Concerns Assessment Noted Time PHQ-9 Depression Total Score: 0 03/19/20 24 9:37 AM EDT documented as of this encounter Care Teams Fax Machine Repairer Relationship Specialty Start Date End Date Suzi Mendiola FNP [address] [place] [phone] PCP - General Family Medicine 04/27/21 documented as of this encounter
--- OUTSIDE RECORDS SUMMARY | 2024-10-07 14:17 | XMS_ITS | Encounter Summary ---
Author Organization [employer] Address [address] [facility] 7t [place] [address] Care Team Providers Care Rivet Sticker Name Role Phone [facility] Primary Care Provider [phone] Reason for Visit * Reason Onset Date Comments Results 03/15/2023 Encounter Details Date Type Department Care Team ([facility] st Contact Info) Description 03/15/2023 Telephone [facility] [address] [place], [place] [phone] [facility] [address] [place] [address] Results Social History Tobacco Use Types Packs/Day [...] and advice. * Telephone Encounter - Latonia Ni - 03/15/2023 10:41 AM EDT Tc from pt requesting lab results documented in this encounter Plan of Treatment Upcoming Encounters Date Type Department Care Team (Late st Contact Info) Description 10/27/2024 10:30 AM EDT Office Visit [facility] [address] [place] [address] Suzi Mendiola FNP [address] [place] [address] documented as of this encounter Visit Diagnoses Not on filedocumented in this encounter Additional Health Concerns Assessment Noted Time PHQ-9 Depression Total Score: 0 12/16/19 23 3:35 PM EDT documented as of this encounter Care Teams Rivet Sticker Relationship Specialty Start Date End Date Suzi Mendiola FNP [address] [place] [address] PCP - General Family Medicine 04/27/21 documented as of this encounter
--- OUTSIDE RECORDS SUMMARY | 2024-10-07 14:17 | XMS_ITS | Clinical Summary ---
Author Organization [facility], Address [address] [place] [address] [place] [address] Phone Care Team Providers Care Anesthesiology Faculty Name Role Phone [facility] Primary Care Provider [phone] Medications cyproheptadine (PERIACTIN) 4 MG tablet take [...] Vaccine Completed 04/01/1998, 01/27/1998, 1997 Insurance [place]ICAID [place] Care Teams Anesthesiology Faculty Relationship Specialty Start Date End Date [facility] [address] [place] [address] PCP - General 08/29/23
--- OUTSIDE RECORDS SUMMARY | 2024-10-07 14:17 | XMS_ITS | Clinical Summary ---
Author Organization [employer] Address [address] [facility] 7t [place] [address] Care Team Providers Care Featheredger And Reducer Machine Name Role Phone [facility] Primary Care Provider [phone] Allergies No known active allergies Medications cyproheptadine [...] as a child he was followed at [facility] and required leg bracing to correct [...] Description 10/03/2024 10:00 AM EST Office Visit [facility] [address] [place] [address] Shakila Cornelius MD Dysuria (Primary Dx); Screening examination for STI; Rash 08/26/2024 Telephone [facility] [address] [place] [address] [place], [place], [facility] Durable Medical Equipment from Last 3 Months [...] the past 12 months, has t he [employer], gas, oil or water company threatened to [...] 10/03/2024 9:46 AM EST Plan of Treatment Upcoming Encounters Date Type Department Care Team (Late st Contact Info) Description 10/27/2024 10:30 AM EDT Office Visit [facility] [address] [place] [address] [facility], [facility] [address] [place] [address] Health Maintenance Due Date Last Done Comments [...] on patient's age to complete this topic Procedures Procedure Name Priority Date/Time Associated Diagnosis Comments CULTURE, URINE, ROUTINE Routine 10/03/2024 10:38 AM EST Dysuria CHLAMYDIA/N. GONORRHOEAE RNA, TMA, UROGENITAL Routine 10/03/2024 10:38 AM EST Screening examination for STI from Last 3 Months Results * Chlamydia/N. Gonorrhoeae RNA, TMA, Urogenitial (10/03/2024 10:38 AM EST) CT PCR NOT DETECTED Not Detect. [facility] Comment:A not detected test result [...] psychologicalconsequences. NG PCR NOT DETECTED Not Detect. [facility] Comment:A not detected test result [...] AM EST 10/03/2024 5:34 PM EST Narrative [facility] - 10/04/2024 9:40 AM EST Urine Shakila Sierra MD LAB MICROBIOLOGY - GE NERAL ORDERABLES Final Result Performing Organization Address City/[facility]/ZIP Co de Phone Number [facility] [address] [place] [address] [phone] * Culture, Urine, Routine (10/03/2024 10:38 AM EST) Urine Urine specimen obtained by clean catch procedure / Unknown 10/03/2024 10:38 AM EST 10/03/2024 5:34 PM EST Comment:[facility] Narrative [facility] - 10/05/2024 10:45 AM EDT Urine Culture No growth. Specimen Source: Urine clean catch Shakila Sierra MD LAB MICROBIOLOGY - GE NERAL ORDERABLES Final Result Performing Organization Address City/[facility] Co de Phone Number [facility] [address] [place] [address] [phone] from Last 3 Months Insurance [facility] C[address] F[employer] Care Teams Featheredger And Reducer Machine Relationship Specialty Start Date End Date [place] CreekSuzi tsai [employer]YCHIATRIC [employer]ID[employer] TE[employer]ER [address] [place] [phone] PCP - General Family Medicine 04/27/21
[2024-10-08 04:16] LABS: HBS Num1 11.56 mIU/mL (0-7.99); HBc Num1 0.12 S/CO (0.00-0.79); HBsAGNum1 0.33 S/CO (0.00-0.99); HIV AB/AG Nonreactive (Nonreactive); Hepatitis A Antibody IgM 0.29 Index (0-0.79); Hepatitis B Core Antibody Nonreactive (Nonreactive); Hepatitis B Surface Antigen Negative (Negative); ~HepC Num1 0.15 S/CO (0.00-0.79); ~Hepatitis A Antibody IgM Nonreactive (Nonreactive); ~Hepatitis C Antibody Nonreactive (Nonreactive)
[2024-10-08 04:52] LABS: HBS Num2 12.74 mIU/mL (0-7.99); HBS Num3 11.91 mIU/mL (0-7.99); ~Hepatitis B Surface Antibody GRAYZONE (Nonreactive)
[2024-10-08 11:47] LABS: RPR Rapid Plasma Reagin NON-REACTIVE (NON-REACTIVE)
== END 2024-10-07 11:30 | disposition home or self-care (01) ==
LOC: HO.HHCL 11:29
PROVIDERS: Visit Provider Internal Medicine
DX: Z11.3 Encounter for screening for infections with a predominantly sexual mode of transmission (principal)
CPT/HCPCS: 36415; 86592; 86704; 86706; 86709; 86803; 87340; 87389

== ENCOUNTER 2024-10-20 12:38 | Day surgery (SDC) | payer MEDICAID, SELFPAY ==
[2024-10-16 14:35] VITALS: BMI 19.8
--- NOTE | 2024-10-17 09:15 | P.CONAN_ITS ---
Documented by User: Sujata Bueno NP 10/17/24 09:15 HPI - Anesthesia Eval Consult details Narrative: 29yo M for Circumcision PMFSH Active Problems Active Problems: All Active Problems COVID-19 (Acute) Balanitis (Acute) Dysuria (Acute) Past Medical History Medical History (Updated 10/16/24 @ 14:34 by Sharri Sanderson, RN) Weight loss Back pain Asthma Situational anxiety Surgical History Surgical History (Updated 10/16/24 @ 14:31 by Sharri Sanderson, RN) History of foot surgery Social History Social History (Updated 10/16/24 @ 14:39 by Sharri Sanderson, RN) Household Members Other:: mother Housing: Apartment 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 If so, by whom?: No Are you DNR?: No Advance Directives: No Advance Directives Information Provided: Yes Advance Directives on File: No Recently lost weight without trying: Yes How much weight loss: 2-13 pounds Eating poorly because of decreased appetite: Yes Nutrition screen score: 4 Poor oral hygiene: No Meds Allergies Allergy/AdvReac Type Severity Reaction Status Date / Time No Known Allergies Allergy Verified 10/02/24 15:58 [No Known Allergies*] Home Medications ?Medication ?Instructions ?Recorded ?Confirmed ?Last Taken ?Type albuterol sulfate 90 mcg/actuation 2 puff inhalation Q4-6H PRN 10/20/24 10/20/24 Unknown History aerosol inhaler Shortness Of Breath Or Wheezing Exam Height,Weight and Vital Signs: Height 5 ft 3 in Weight 50.802 kg Assessment and Plan Assessment Anesthesia Assessment: Chart Reviewed Documented by User: Vaughn Zelaya MD 10/20/24 15:22 [facility] Past Medical History Medical History (Updated 10/16/24 @ 14:34 by Sharri Sanderson, DARBY) Weight loss Back pain Asthma Situational anxiety Family History Family history of problems with anesthesia: No Surgical History Surgical History (Updated 10/16/24 @ 14:31 by Sharri Sanderson, RN) History of foot surgery History of Problems with Anesthesia: No Social History Social History (Updated 10/16/24 @ 14:39 by Sharri Sanderson, DARBY) Household Members Other:: mother Housing: Apartment 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 If so, by whom?: No Are you DNR?: No Advance Directives: No Advance Directives Information Provided: Yes Advance Directives on File: No Recently lost weight without trying: Yes How much weight loss: 2-13 pounds Eating poorly because of decreased appetite: Yes Nutrition screen score: 4 Poor oral hygiene: No Meds Allergies Allergy/AdvReac Type Severity Reaction Status Date / Time No Known Allergies Allergy Verified 10/02/24 15:58 [No Known Allergies*] Home Medications ?Medication ?Instructions ?Recorded ?Confirmed ?Last Taken ?Type albuterol sulfate 90 mcg/actuation 2 puff inhalation Q4-6H PRN 10/20/24 10/20/24 Unknown History aerosol inhaler Shortness Of Breath Or Wheezing Exam Airway Mallampati Class: I TM Dist: >3cm Neck ROM: Full Loose/Missing/Broken Teeth: No Heart: ok Lungs: ok Assessment and Plan Assessment Anesthesia Assessment: Anesthesia Plan Discussed Final Anesthetic Review Family History of Problems with Anesthesia: No History of Problems with Anesthesia: No NPO: Yes ASA Class: II Final Preanesthetic Review: No Changes in Pt Med Stat, Meds/Allgs Chart Reviewed, Consent Obtained/Reviewed and Anes Risks/Benef Reviewed Patient Risk: Low Procedure Risk: Low Anesthetic Plan Anesthetic Plan: GA and Agree w/ Assess. and Plan Disposition: Standard PACU
[2024-10-20 13:17] VITALS: BP 131/71; PULSE 53; RESP 15; TEMP 36.9; O2SAT 99
[2024-10-20] MEDS: Lactated Ringers 1,000 ML 100 ML IVCONT (13:23)
--- NOTE | 2024-10-20 14:35 | MHC.SHP ---
Pre-Procedural Eval Section A - 24 Hr Update-Section A only Date of Service: 10/20/24 The patient is an INPATIENT: No Changes since office visit: No Cold of Flu in the past 2 weeks, No New Medical Problems, No Changes in Medication and No Patient answered all questions The patient has been examined within 24 hours of the surgical procedure. The History & Physical has been completed within 30 days and I have reviewed it.: Yes Section B - Complete if H&P > 30 days Chief Complaint: Balanitis Details of Present Illness: Circumcision Allergies: Allergies Allergy/AdvReac Type Severity Reaction Status Date / Time No Known Allergies Allergy Verified 10/02/24 15:58 [No Known Allergies*] Review of Systems Sugical H&P ROS: Negative: Constitution, Cardiovascular, Respiratory, Neurological, Psychiatric, Hem-Onc, Allergic/Immunologic, Gastrointestinal, Genitourinary, Musculoskeletal, Integumentary, Endocrine and Eyes/Ears/Nose/Throat Exam Surgical H&P Exam: Normal: HEENT, Normal: Heart, Normal: Lungs, Normal: Extremities, Normal: Abdomen, Normal: Skin and Normal: Neurological Plan Diagnosis/Plan: Unchanged (Circumcision) I have reviewed the history and physical and performed a pertinent physical examination on my patient. No changes have occurred unless specified. Time Spent With Patient Time: Total time managing care of this patient today ____ minutes.
--- NOTE | 2024-10-20 15:43 | P.OP_ITS ---
Operative Note Operative Note Date of Service: 10/20/24 Narrative: PreOperative Diagnosis: Balanitis and phimosis Post Operative Diagnosis: Balanitis and phimosis Procedure: Circumcision Surgeon: Dr Gilberto Carmen Anesthesia: General Indications for procedure: Recurring balanitis in inability to withdrawal foreskin of penile glans. Risks and benefits including bleeding, scarring, need for revision surgery been discussed. Procedure: After informed consent was verified the patient was brought to the operating room and placed in a supine position. Anesthesia was administered per protocol. The patient was prepped and draped sterile fashion. Safety pause time-out was performed. Antibiotics have been given. The penis was examined and proximal incision marked that lay just proximal to the resting position of the penile sulcus. This was followed around the circumference of the penis. A penile ring block was performed using 1% lidoca ine with no epinephrine. Approximately 8 cc. The proximal incision was developed with sharp blade running circumferentially around the penis. The skin was to give a 1 cm separation between the foreskin in the remaining penile shaft skin. The foreskin was withdrawn and the penile glans exposed. A a distal incision was made approximately 5 mm proximal to the penile sulcus. At the area of the frenulum care was taken to empty the penile frenulum intact. Using clamps the dorsal skin was elevated. Using Metzenbaum scissors the avascular plane was entered and proximal and distal incision were joined. The bridging skin was elevated and clamped. It was then divided using Bovie. The sleeve of tissue was then removed circumferentially around the penis using cautery in order to minimize bleeding. The shaft was then examined in any bleeding areas were controlled. More local anesthetic was injected into the plane beneath avascular plane to help with postprocedure pain management. The skin edges after they were appropriately examined low reapposed. A 3-0 chromic suture was placed at 12:00 o'clock and 06:00 o'clock positions. Interrupted 3-0 was then placed the 09:00 o'clock and 3 o'clock position. Each quadrant was then filled with 3 sutures using 4-0 chromic. At the completion of the procedure there was adequate hemostasis. The incision was washed and dried. Antibiotic cream was applied to the incision. A Sam wrap was applied followed by a Coban dressing. Xeroform gauze had been used to cover antibiotic ointment. He tolerated the procedure well and was extubated in the room and transferred in stable condition to the recovery area. Pathology: Foreskin Drains: none
[2024-10-20 15:52] VITALS: BP 144/92; PULSE 87; RESP 16; TEMP 36.4; O2SAT 99
[2024-10-20 15:57] VITALS: BP 127/78; PULSE 77; RESP 16; O2SAT 99
[2024-10-20 16:02] VITALS: BP 131/57; PULSE 89; RESP 16; O2SAT 100
[2024-10-20 16:07] VITALS: BP 131/83; PULSE 70; RESP 16; O2SAT 100
[2024-10-20 16:22] VITALS: BP 132/79; PULSE 70; RESP 16; TEMP 37; O2SAT 100
== END 2024-10-20 16:39 | disposition home or self-care (01) ==
PROVIDERS: Visit Provider Urology
PROC: (CPT 54161; principal; 2024-10-20 14:20)
DX: N48.1 Balanitis (principal); N47.1 Phimosis; R30.0 Dysuria; J45.909 Unspecified asthma, uncomplicated; F41.8 Other specified anxiety disorders; Z79.899 Other long term (current) drug therapy; Z87.891 Personal history of nicotine dependence
CPT/HCPCS: 54161; 88304; J0690; J2003; J2704; J2795; J3010

== ENCOUNTER → 2024-10-20 12:38 | Outpatient (BNV) | payer MEDICAID, SELFPAY | PROVIDERS: Visit Provider Urology | DX: N48.1 Balanitis (principal); N47.1 Phimosis | CPT/HCPCS: 54161 ==

== ENCOUNTER 2024-11-12 13:36 | Outpatient (AMB) | payer MEDICAID, SELFPAY ==
--- NOTE | 2024-11-12 13:39 | MHC.OFFVIS ---
Intake Visit Reasons: Circumcision- follow up Intake Note: Patient is present for CIRCUMCISION F/U Urology Medication:NONE Antibiotic Allergy:NONE Blood Thinner:NONE Smoking Pipe Driller And Threader Required: No Allergies No Known Allergies [No Known Allergies*] Allergy (Verified 11/12/24 13:40) HPI Comments Details: Alfredo is a pleasant male. He is a patient of Dr. Alfredito tsai. He is seen for the following urologic conditions - balanitis - urethritis question prostatitis Follow-up from circumcision Well healed P.r.n. follow-up Balanitis Plan for circumcision [facility] Medical History (Updated 10/16/24 @ 14:34 by Sharri Sanderson, DARBY) Weight loss Back pain Asthma Situational anxiety Surgical History (Updated 10/16/24 @ 14:31 by Sharri Sanderson, RN) History of foot surgery Social History (Updated 10/16/24 @ 14:39 by Sharri Sanderson, DARBY) Household Members Other:: mother Housing: Apartment Are you a primary lawn care worker to a significant other at home: Yes (mother) Patient Tobacco Use Status: Former Tobacco user Tobacco use type: Cigarette Substance Use Type: Marijuana Review of Systems Const Denies chills and Denies fever(s) Card Reports no additional complaints and Denies syncope Resp Denies cough GI Denies abdominal pain and Denies heartburn Reports as per HPI and Denies change in libido Neuro Denies syncope Psych Denies change in libido Endo Denies change in libido Physical Exam Const General: cooperative, healthy appearing, comfortable and no acute distress Orientation/consciousness: patient oriented x3 HEENT Face and sinus: Yes normal facial exam Mouth: moist mucous membranes Neck Neck: Yes normal visual inspection, Yes full ROM and Yes trachea midline Chest Chest palpation & inspection: normal inspection of the chest Resp Effort & Inspection: normal respiratory effort, able to speak in complete sentences and no respiratory distress GI Inspection: Yes normal to inspection Back/Spine/Pelvis Cervical Spine: normal cervical lordosis Thoracic/Lumbar Spine: thoracic and lumbar spine normal to inspection Skin General skin exam: no rashes or lesions noted Neuro General: patient oriented x3, gait normal, tone normal and moves all extremities Extrem General: Yes normal to inspection and Yes capillary refill normal Assessment & Plan Assessment & Plan (1) Balanitis: Code(s): N48.1 - Balanitis Category: Medical Plan Well healed Patient Instructions: This note is constructed using voice recognition software. While every effort has been made to ensure accuracy distribution engineer errors may have been included. Imaging studies, laboratory and physical exam results were discussed and reviewed in detail. No major barriers to patient understanding were identified. An opportunity to ask questions regarding the treatment plan was provided. All questions were answered. The patient expressed understanding and agreement with the above treatment plan. The patient is aware they should contact our office by phone for worsening of their current condition or the appearance of new urologic symptoms. Compliance is encouraged with any medications and followup testing that is ordered. It is a privilege to participate in the urologic care of your patient. If you have any questions or concerns regarding treatment for the above conditions, or other urologic issues, please do not hesitate to contact me. The office telephone contact is [phone]. Sincerely, Dr Gilberto Carmen MD, [facility] - Urology Compassionate Specialist Care for the Genitourinary System Coding Level of Care Code [employer] (93921) Diagnoses Balanitis N48.1
--- OUTSIDE RECORDS SUMMARY | 2024-11-12 16:14 | XMS_ITS | Clinical Summary ---
Author Organization [facility], Address [address] [place] [address] [place] [address] Phone Care Team Providers Care Inpatient Care Manager Rn Name Role Phone [facility] Primary Care Provider [phone] Medications cyproheptadine (PERIACTIN) 4 MG tablet take [...] Due Date Last Done Comments Pneumococcal Vaccine: Peds ( 0 to 5 Years) and At-Risk Patients (6 to 49 Years) (1 of 2 - PCV) 2016 Influenza Vaccine (Season Ended) 2025 07/13/2023, 09/01/2020, 05/22/2016, Additional history exists Hepatitis B Vaccine Completed 04/01/1998, 01/27/1998, 1997 Insurance Medicaid [place] Care Teams Inpatient Care Manager Rn Relationship Specialty Start Date End Date [facility] [address] [place] [address] PCP - General 08/29/23
--- OUTSIDE RECORDS SUMMARY | 2024-11-12 16:14 | XMS_ITS | Clinical Summary ---
Author Organization [employer] Address [address] [facility] 7t [place] [address] Care Team Providers Care Tire Groover Name Role Phone [facility] Primary Care Provider [phone] Allergies No known active allergies Medications cyproheptadine [...] 2 weeks 80 g 1 4 Active mirtazapine (Remeron) 15 MG tabletIndications :Poor weight gain in adult Take 1 tablet (15 mg) by mouth at bedtime. 30 tablet 11 5 10/28/19 26 Active clotrimazole-beta methasone (Lotrisone) creamIndications: Rash Apply topically 2 times daily for 28 days. 45 g 5 11/01/19 25 Active Problems Problem Noted Date Diagnosed Date [...] as a child he was followed at [facility] and required leg bracing to correct [...] Encounters Date Type Department Care Team Description 11/06/2024 Patient Outreach [facility] [address] [place] [phone] Suzi Mendiola FNP 10/27/2024 10:30 AM EDT Office Visit [facility] [address] [place] [address] Suzi Mendiola FNP Poor weight gain in adult (Primary Dx); Nail-patella syndrome; Complaint of insomnia; Status post routine circumcision 10/27/2024 Travel 10/23/2024 Patient Outreach [address] [address] Suzi Mendiola FNP Care Coordination (NATHALIA/TAHMINA Be, Return call from patient CM enrollment) 10/20/2024 Orders Only GENERIC EXTERNAL DATA DEPARTMENT Provider, Generic External Data 10/16/2024 Patient Outreach [address] [address] Suzi Mendiola FNP Care Coordination (NATHALIA/TAHMINA Be, TC initial outreach CM Program_lvm ) 10/16/2024 Patient Outreach [address] [address] Suzi Mendiola FNP Care Coordination (NATHALIA/TAHMINA Be, Chart Review ) 10/16/2024 Patient Outreach [address] [address] Suzi Mendiola FNP Pre-visit Planning ((SDOH screening positive tobacco screening positive)) 10/10/2024 Population Health Risk Score [facility] [address] [place] [phone] Provider, Population Health Generic 10/09/2024 Telephone [facility] [address] [place] [phone] Shakila Cornelius MD 10/03/2024 10:00 AM EST Office Visit [facility] [address] [place] [phone] Shakila Cornelius MD Dysuria (Primary Dx); Screening examination for STI; Rash 08/26/[address] [address] Suzi Mendiola FNP Durable Medical Equipment from Last 3 Months [...] What is your housing situation today? I do not have housing (Staying with others, in a hotel, in a fci, living outside on the street, on a beach, in a car, or in a park 10/23/[address] you li ve. Do you have problems with any of the following? None of the above 10/23/2024 Food Insecurity Answer Date Recorded Within the past 12 months, y ou worried that your food would run out before you got money to buy more: Never True 10/16/2024 Within the past 12 months,th e food you bought just didn't last and you didn't have enough money to get more: Never True Transportation Answer Date Recorded In the past 12 months, has l ack of transportation kept you from medical appts, meetings, work or from getting things needed for daily living? No 10/16/2024 Utilities Answer Date Recorded In the past 12 months, has t he [employer], gas, oil or water company threatened to shut off services in your home? No 10/16/2024 Depression Answer Date Recorded Patient Health Questionnaire-2 Score 0 03/19/2024 Internet Access Answer Date Recorded Internet Access Q1 Yes 10/16/2024 Internet Access Q2 Not on file 10/16/2024 Sex and Gender Information Value Date Recorded Sex Assigned at Male 05/29/2022 10:16 AM EDT Legal Sex Male 10:16 AM EDT Gender Identity Male 05/29/2022 10:16 AM EDT Sexual Orientation Straight 05/29/2022 10 :16 AM EDT Last Filed Vital Signs Vital Sign Reading Time Taken Comments Blood Pressure 120/76 10/27/2024 11:26 AM EDT Pulse 60 10/27/2024 10:43 AM EDT Temperature 36.7 ??C (98 ??F) 10/27/2024 10:43 AM EDT Respiratory Rate 18 10/27/2024 10:43 AM EDT Oxygen Saturation 100% 10/27/2024 10:43 AM EDT Inhaled Oxygen Concentration - - Weight 53 kg (116 lb 12.8 oz) 10/27/2024 10:43 A M EDT Height 160 cm (5' 3 ) 10/27/2024 10:43 AM EDT Body Mass Index 20.69 10/27/2024 10:43 AM EDT Plan of Treatment Health Maintenance Due Date Last Done Comments Lipid Panel 1997 Alcohol/Substance Use Screening 2009 Family Planning (PISQ) 2012 Pneumococcal Vaccine: Pediatrics (0 to 5 Years) and At-Risk Patients (6 to 49) Years) (1 of 2 - PCV) 2016 COVID-19 Vaccine ( season) 2024 07/13/2023, 01/22/2022, 12/22/2020, Additional history exists Depression Screening 03/19/2025 03/19/2024, 03/19/20 24 SDOH Screening 10/23/2025 10/23/2024 Tobacco Screening 10/27/2025 10/27/2024 DTaP/Tdap/Td Vaccines (7 - Td or Tdap) [...] Completed 06/18/2024, , 09/01/2020, Additional history exists HIV Screening Completed 10/07/2024 Hepatitis C Screening Completed 10/07/2024 RSV under 20 months Aged Out No longe r eligible based on patient's age to complete this topic Rotavirus Vaccines Aged Out No longer eligible based on patient's age to complete this topic Procedures Procedure Name Priority Date/Time Associated Diagnosis Comments GROSS AND MICROSCOPIC LEVEL 3 Routine 10/20/2024 3:24 PM EDT RPR (MONITOR) W/REFL TITER Routine 10/07/2024 11:31 AM EDT Screening examination for STI HEPATITIS PANEL, GENERAL Routine 10/07/2024 11:31 AM EDT Screening examination for STI HIV 1/2 ANTIGEN/ANTIBODY, FOURTH GENERATION W/RFL Routine 10/07/2024 11:31 AM EDT Screening examination for STI CULTURE, URINE, ROUTINE Routine 10/03/2024 10:38 AM EST Dysuria CHLAMYDIA/N. GONORRHOEAE RNA, TMA, UROGENITAL Routine 10/03/2024 10:38 AM EST Screening examination for STI from Last 3 Months Results * Gross and Microscopic Level 3 (10/20/2024 3:24 PM EDT) 10/20/2024 3:24 PM EDT 10/21/2024 9:06 AM EDT [facility] - 10/22/2024 2:15 PM EDT ----- ------- Name: Alfredo Davis ? Age/Sex: 29/M ? : 1995 Unit#: [id number] ?? Attend Dr: Gilberto Carmen MD ?Re10/20/24 ?Status: DEP SDC ? Location: HO.SSS ?Disch: ? ----- ------- SPEC : [id number] ? RECD: 10/21/24 ? STATUS: ??SOUT ? REQ NUM: [id number] ? BELLA: 10/20/24 ? SUBM DR: Gilberto Carmen MD ? ENTERED: ??10/21/24 ?SP TYPE: Surgical ? OTHR DR: [facility] ? ORDERED: ??Gross Micro L3 ? Diagnosis ?? Foreskin, circumcision: ??Skin with rare chronic inflammatory cells and dermal ?? hyalinization, compatible with phimosis. ?Clinical History Balanitis ?Microscopic Description Microscopic sections reviewed. ? Material Received ?? Foreskin ? Gross Description Received in formalin labeled ?foreskin? is a 6.5 x 1.5-3.5 cm butterfly-shaped portion of otherwise unremarkable wrinkled pollard foreskin excised to a depth of 0.45 cm. ??No erosions or ulcers are identified. ??Sectioning reveals pollard-pink fibrous cut surfaces. ??Outboard Motorboat Rigger sections are submitted in a cassette labeled A1. CEDS Copies To: ?? Gilberto Carmen MD ?? [facility] Services ?? [address] ?? [place] [address] ?? [phone] ?? [facility] ?? [address] ?? [place] [address] ?? ----- ------- Signed (signature on file) Sharri Leominster 10/22/24 1415 ? ----- ------- ? END OF REPORT ? us Generic External Data Provider LAB CYTOLOGY NAZIAE VELLES Final Result [facility] [address] [place] [phone] * Hepatitis A,B,C Profile (10/07/2024 11:31 AM EDT) Pathologist [facility] Hepatitis A IgM Nonreactive Nonreactive [facility] Comment:IgM antibodies to IVERSON V not detected; does not exclude earlyacute or recovered HAV infection. ~Hepatitis B Surface Antibody GRAYZONE Nonreactive [facility] Comment:GRAYZONE: 8.00 mIU/m L TO 11.99 mIU/mLTHE IMMUNE STATUS OF THE INDIVIDUAL SHOULD BE FURTHERASSESSED BY CONSIDERING OTHER FACTORS, SUCH CLINICALSTATUS, FOLLOW-UP TESTING, ASSOCIATED RISK FACTORS, AND THEUSE OF ADDITIONAL DIAGNOSTIC INFORMATION. Hepatitis B Core Antibody Nonreactive Nonreactive [facility] Hepatitis C Antibody Nonreactive Nonreactive [facility] Comment:Antibodies to HCV no t detected; does not exclude early acuteHCV infection. Hepatitis B Surface Ag Negative Negative [facility] Blood Venous blood specimen / Unknown 10/07/2024 11:31 AM EDT 10/07/2024 1:09 PM EDT Shakila Sierra MD LAB BLOOD ORDERABLES Final Result Performing Organization Address [facility] de Phone Number [facility] [address] [place] [phone] * RPR (Monitor) with Reflex to??Titer (10/07/2024 11:31 AM EDT) RPR (Monitor) w/Refl Titer NON-REACTI VE NON-REACT PRAVEEN [facility] Comment:THIS TEST WAS PERFOR MED AT:[facility] [place] [phone] MCCONNELL MD Rapid Plasma Reagin Ab Titer TNP [facility] Blood Venous blood specimen / Unknown 10/07/2024 11:31 AM EDT 10/07/2024 1:09 PM EDT us Shakila Sierra MD LAB BLOOD ORDERABLES Final Result Performing Organization Address [facility] de Phone Number [facility] [address] [place] [phone] * HIV-1/2 Antigen and Antibodies, Fourth Generation, with Reflexes (10/07/2024 11:31 AM EDT) HIV AB/AG Nonreactive Nonreactive [facility] Comment:HIV-1 p24 Ag and/or HIV-1/HIV-2 Ab not detected.A test result that is nonreactive does not exclude thepossibility of exposure to or infection with HIV-1 and/orHIV-2. Nonreactive results in this assay for individualswith prior exposure to HIV-1 and/or HIV-2 may be due toantigen and antibody levels that are below the limit ofdetection of this assay.The [employer] HIV Ag/Ab Combo assay result andsupplemental assay results should be interpreted inconjunction with the patient's clinical presentation,history and other laboratory results. If the results areinconsistent with clinical evidence, additional testing issuggested to confirm the result. Blood Venous blood specimen / Unknown 10/07/2024 11:31 AM EDT 10/07/2024 1:09 PM EDT Shakila Sierra MD LAB BLOOD ORDERABLES Final Result [facility] [address] [place] [phone] * Chlamydia/N. Gonorrhoeae RNA, TMA, Urogenitial (10/03/2024 10:38 AM EST) CT PCR NOT DETECTED Not Detect. [facility] Comment:A not detected test result [...] psychologicalconsequences. NG PCR NOT DETECTED Not Detect. [facility] Comment:A not detected test result [...] 10:38 AM EST 10/03/2024 5:34 PM EST [facility] - 10/04/2024 9:40 AM EST Urine us Shakila Sierra MD LAB MICROBIOLOGY - GE NERAL ORDERABLES Final Result Performing Organization Address [facility] Co de Phone Number [facility] [address] [place] [phone] * Culture, Urine, Routine (10/03/2024 10:38 AM EST) Urine Urine specimen obtained by clean catch procedure / Unknown 10/03/2024 10:38 AM EST 10/03/2024 5:34 PM EST Comment:[facility] - 10/05/2024 10:45 AM EDT Urine Culture No growth. Specimen Source: Urine clean catch us Shakila Sierra MD LAB MICROBIOLOGY - GE NERAL ORDERABLES Final Result Performing Organization Address [facility] Co de Phone Number [facility] [address] [place] [phone] from Last 3 Months Insurance [facility] C3 HSN FULL Care Teams Tire Groover Relationship Specialty Start Date End Date Suzi Mendiola FNP [address] [place] [phone] PCP - General Family Medicine 04/27/21
--- OUTSIDE RECORDS SUMMARY | 2024-11-12 16:14 | XMS_ITS | Encounter Summary ---
Author Organization [employer] Address [address] [facility] 7t [place] [address] Care Team Providers Care Parts Salesperson Name Role Phone [facility] Primary Care Provider [phone] Reason for Visit * Reason Onset Date Comments Results 03/15/2023 Encounter Details Date Type Department Care Team ([facility] st Contact Info) Description 03/15/2023 Telephone [facility] [address] [place], [place] [phone] [facility] [address] [place] [address] Results Social History Tobacco Use Types Packs/Day [...] documented as of this encounter Care Teams Parts Salesperson Relationship Specialty Start Date End Date Suzi Mendiola FNP [address] [place] [phone] PCP - General Family Medicine 04/27/21 documented as of this encounter
--- OUTSIDE RECORDS SUMMARY | 2024-11-12 16:14 | XMS_ITS ---
Author Organization [employer] Address [address] [place] [address] 7 [place] [address] Care Team Providers Care Pest Control Service Technician Name Role Phone [facility] Primary Care Provider [facility] Status:Enrolled (Active) Start date:10/16/2024 Enrollment date:10/23/2024 Enrollment reason:Referred by provider Overview SDOH - Housing Case Team Name Relationship Phone Shanique Be (Responsible Staff) Continued Care and Services Coordination
== END 2024-11-12 14:01 | disposition home or self-care (01) ==
LOC: HO.HUSH 13:37
PROVIDERS: Visit Provider Urology
DX: N48.1 Balanitis (principal)
CPT/HCPCS: 99024

== ENCOUNTER → 2024-11-12 13:36 | Outpatient (BNVA) | payer MEDICAID, SELFPAY | PROVIDERS: Visit Provider Urology ==

== ENCOUNTER 2025-07-08 10:26 | Outpatient (AMB) | payer MEDICAID, SELFPAY ==
--- NOTE | 2025-07-08 10:39 | A.OFFVIS_ITS ---
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 He is a patient of [facility]. 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 May have trapped prostate Trial alpha-carmne [facility] Medical History Complaint of insomnia Rash Vitamin D deficiency Dysuria Proteinuria Mild intermittent asthma Weight loss Back pain Asthma Situational anxiety Surgical History History of circumcision History of foot surgery Family History Mother HTN (hypertension) Social History Household Members Other:: mother Housing: Apartment Are you a primary furnace caretaker to a significant other at home: Yes (mother) Patient Tobacco Use Status: Former Tobacco user Tobacco use type: Cigarette Substance Use Type: Marijuana Review of Systems Const Denies chills and Denies fever(s) Card Reports no additional complaints and Denies syncope Resp Denies cough GI Denies abdominal pain and Denies heartburn Reports as per HPI and Denies change in libido Neuro Denies syncope Psych Denies change in libido Endo Denies change in libido Physical Exam Const General: cooperative, healthy appearing, comfortable and no acute distress Orientation/consciousness: patient oriented x3 HEENT Face and sinus: Yes normal facial exam Mouth: moist mucous membranes Neck Neck: Yes normal visual inspection, Yes full ROM and Yes trachea midline Chest Chest palpation & inspection: normal inspection of the chest Resp Effort & Inspection: normal respiratory effort, able to speak in complete sentences and no respiratory distress GI Inspection: Yes normal to inspection Back/Spine/Pelvis Cervical Spine: normal cervical lordosis Thoracic/Lumbar Spine: thoracic and lumbar spine normal to inspection Skin General skin exam: no rashes or lesions noted Neuro General: patient oriented x3, gait normal, tone normal and moves all extremities Extrem General: Yes normal to inspection and Yes capillary refill normal Office Procedures Post Void Residual Post Residual Void Post Void Residual (PVR): 0 16549-Yswa Void Residual by ultrasound Results AMB Urinalysis, Automated UA Leukoctes 0 Yimi/uL Last Edit by Cynthia Alejandra [facility] on 07/08/25 11:15 UA Nitrite Negative Last Edit by Cynthia Alejandra [facility] on 07/08/25 11:15 UA Urobilinogen 0.2 mg/dL Last Edit by Cynthia Alejandra [facility] on 07/08/25 11:1 5 UA Protein 30 mg/dL Last Edit by Cynthia Alejandra [facility] on 07/08/25 11:15 UA pH 5.5 Last Edit by Cynthia Alejandra [facility] on 07/08/25 11:15 UA Blood 0 Talha/uL Last Edit by Cynthia Alejandra [facility] on 07/08/25 11:15 UA Specific Slick 1.030 Last Edit by Cynthia Alejandra [facility] on 07/08/25 11: 15 UA Ketone Positive Last Edit by Cynthia Alejandra [facility] on 07/08/25 11:15 UA Bilirubin 1 mg/dL Last Edit by Cynthia Alejandra [facility] on 07/08/25 11:15 UA Glucose 0 mg/dL Last Edit by Cynthia Alejandra [facility] on 07/08/25 11:15 Results Reviewed Results Reviewed: Laboratory Last Values Urine pH (Auto) 5.5 07/08/25 11:04 Specific Slick (Auto) 1.030 07/08/25 11:04 Urine Protein (Auto) 30 mg/dL 07/08/25 11:04 Glucose (UA)(Auto) 0 mg/dL 07/08/25 11:04 Urine Ketones (Auto) Positive 07/08/25 11:04 Urine Blood (Auto) 0 Talha/uL 07/08/25 11:04 Urine Nitrite (Auto) Negative 07/08/25 11:04 Urine Bilirubin (Auto) 1 mg/dL 07/08/25 11:04 Urine Urobilinogen (Auto) 0.2 mg/dL 07/08/25 11:04 Leukocyte Esterase (Auto) 0 Yimi/uL 07/08/25 11:04 Assessment & Plan Assessment & Plan (1) Bladder outlet obstruction: Code(s): N32.0 - Bladder-neck obstruction Category: Medical Plan Three-month follow-up Orders: Orders AMB Post Void Residual by ultrasound Today R39.14 - Feeling of incomplete bladder emptying AMB Urinalysis Automated Today R30.0 - Dysuria, Z13.9 - Encounter for screening, unspecified Medications: New alfuzosin ER 10 mg PO DAILY 30 tabs 1RF 30 days R30.0 - Dysuria Patient Instructions: This note is constructed using voice recognition software. While every effort has been made to ensure accuracy lawyer probate errors may have been included. Imaging studies, laboratory and physical exam results were discussed and reviewed in detail. No major barriers to patient understanding were identified. An opportunity to ask questions regarding the treatment plan was provided. All questions were answered. The patient expressed understanding and agreement with the above treatment plan. The patient is aware they should contact our office by phone for worsening of their current condition or the appearance of new urologic symptoms. Compliance is encouraged with any medications and followup testing that is ordered. It is a privilege to participate in the urologic care of your patient. If you have any questions or concerns regarding treatment for the above conditions, or other urologic issues, please do not hesitate to contact me. The office telephone contact is [phone]. Sincerely, Dr Gilberto Carmen MD, [facility] - Urology Compassionate Specialist Care for the Genitourinary System Coding Level of Care Code New Pt Level 4 (68548) Diagnoses Bladder outlet obstruction N32.0 CPT Codes Post Residual Void - PVR CPT Code: 09335-Ksku Void Residual by ultrasound ([id number])
== END 2025-07-08 11:43 | disposition home or self-care (01) ==
LOC: HO.HUSH 10:27
PROVIDERS: Visit Provider Urology
DX: R30.0 Dysuria (principal); N32.0 Bladder-neck obstruction
CPT/HCPCS: 99214

== ENCOUNTER → 2025-07-08 10:26 | Outpatient (BNVA) | payer MEDICAID, SELFPAY | PROVIDERS: Visit Provider Urology | DX: R30.0 Dysuria (principal); N32.0 Bladder-neck obstruction; R39.14 Feeling of incomplete bladder emptying; Z13.9 Encounter for screening, unspecified | CPT/HCPCS: 51798; 81003; 99212 ==